=== PATIENT | male | born 1955 | race Caucasian/White ===

== ENCOUNTER 2023-09-08 13:41 | Emergency (ER) | payer MEDICARE, SELFPAY ==
[2023-09-08] VITALS (122 sets, daily range): BP systolic 73–182; BP diastolic 47–108; PULSE 90–119; RESP 12–56; TEMP 28–38.4; O2SAT 78–98; BMI 39.4
--- NOTE | 2023-09-08 13:42 | DI.RAD.S_ITS ---
PROCEDURE: XR CHEST 1V INDICATIONS: short of breath TECHNIQUE: One view of the chest was acquired. COMPARISON: None. FINDINGS: Surgical changes and devices: Catheter projects over the right chest. Lungs and pleura: Moderate diffuse reticulonodular pulmonary opacity. Small right pleural effusion. Mediastinum: Mediastinal contours appear normal. Heart size is normal. Bones and chest wall: No suspicious bony lesions. Overlying soft tissues appear unremarkable. IMPRESSION: 1. Bilateral edema versus pneumonia. 2. Right pleural effusion. Dictated by: Swati Huffman M.D. on 09/08/2023 at 14:09 Approved by: Swati Huffman M.D. on 09/08/2023 at 14:09
--- NOTE | 2023-09-08 13:52 | ED_ITS ---
HPI - SOB/Dyspnea General Chief Complaint: Shortness of Breath/Dyspnea Stated Complaint: Fever/SOB Time Seen by Provider: 09/08/23 13:42 Source: patient, family and EMS Mode of arrival: EMS History of Present Illness HPI Narrative: Patient 67 year old male with known smoking history presenting with a couple days of increasing shortness of breath. EMS found him with O2 in the 69% range he was immediately placed on CPAP. He is cool and clammy to the touch able to answer some questions. Denies any chest pain. He reports that he did not call 911 that in fact his sons in because he was concerned. He is requiring BiPAP is obvious having some respiratory distress. Family at bedside minimal history is known he does not typically go to doctors. Has had a cough ongoing for number of months if not years. Does not seem to be in his normal mental state per family at bedside Related Data Home Medications Medication Instructions Recorded Confirmed No Known Home Medications 09/08/23 09/08/23 Allergies Allergy/AdvReac Type Severity Reaction Status Date / Time No Known Drug Allergies Allergy Unverified 09/08/23 16:46 Patient History Smoking Status: Current every day smoker tobacco type: cigarettes Exam Initial Vital Signs Initial Vital Signs: Vital Signs Temperature 97.4 F L 09/08/23 13:42 Pulse Rate 104 H 09/08/23 13:42 Respiratory Rate 32 H 09/08/23 13:42 Blood Pressure 141/93 H 09/08/23 13:42 Pulse Oximetry 94 09/08/23 13:42 Oxygen Delivery Method BiPAP 09/08/23 13:42 GENERAL: 67 year old male moderate respiratory distress HEENT: Head atraumatic,EOMI, pupils reactive, face symmetric, [moist] mucous membranes CARDIOVASCULAR: Tachycardic regular RESPIRATORY: Obvious tachypnea on CPAP decreased breath sounds bilaterally no wheezing ABDOMEN: Soft, nontender. Normoactive bowel sounds all 4 quadrants. No guarding or rebound. EXTREMITIES: Normal range of motion, no clubbing or edema. Neurovascularly intact NEUROLOGICAL: Alert and oriented x4.Normal gait and speech. SKIN: Cool extremities decreased peripheral pulses Procedures Intubation sedative: Ketamine Mg Given: 230 paralytic: Rocuronium Mg Given: 79 Assist Device Used: other ([place] scope) ET Tube Size: 8 ET Tube Uncuffed: No Tube Secured Depth (cm): 24 Tube Secured Location: teeth Tube Placement Confirmation: Visualized tube passing through cords, Equal breath sounds bilaterally, No breath sounds over epigastrium, Confirmation by capnometry and Chest Xray Patient Tolerated Procedure: Well Course Orders Ordered: ED Orders 09/08/23 13:42 XR chest 1V Stat EKG-12 Lead Stat 09/08/23 13:45 BiPAP Ventilatory Support RT PROTOCOL 09/08/23 13:50 Pathologist Review (for CBC) Routine 09/08/23 13:58 Complete Blood Count AUTO DIFF Stat Comprehensive Metabolic Panel Stat LDH [Lactate Dehydrogenase] Stat Lactate (Lactic Acid) Stat NT-proBNP (BNP-Adult 18+) Stat PTT Partial Thromboplastin Ronal Stat Procalcitonin Stat Prothrombin Time INR Stat Troponin & CK Cardiac Panel Stat Uric Acid Stat 09/08/23 14:00 Respiratory Panel (Film Array) Stat 09/08/23 14:12 Arterial Blood Gas Stat 09/08/23 14:20 Blood Culture Stat 09/08/23 16:00 High flow/High humidity nasal NOW 09/08/23 16:26 XR chest for PICC 1V Stat 09/08/23 16:40 XR chest 1V Stat Ventilator Order 09/08/23 16:41 Basic Metabolic Panel Stat Trop I [Troponin I] Stat 09/08/23 17:32 Arterial Blood Gas Stat 09/08/23 17:50 Lactate (Lactic Acid) Stat Potassium Stat Discontinued Medications Albuterol (Albuterol 2.5 Mg/3 Ml Neb (Adult)) 10 mg INH NOW ONE Stop: 09/08/23 13:53 Last Admin: 09/08/23 14:23 Dose: 10 mg Documented By: LADARIUS Albuterol/Ipratropium (Albuterol/Ipratropium 3 Ml Ampul) 3 ml INH NOW ONE Stop: 09/08/23 13:44 Last Admin: 09/08/23 13:57 Dose: 3 ml Documented By: SUSAN Chlorhexidine Gluconate (Chlorhexidine Gluconate 15 Ml Cup) 15 ml PO Q6HR JAMARI Fentanyl (Fentanyl 100 Mcg/2 Ml Inj) 50 mcg IV Q1HR PRN PRN Reason: Pain, Severe (7-10) Furosemide (Furosemide 40 Mg/4 Ml Vial) 40 mg IV NOW ONE Stop: 09/08/23 14:32 Last Admin: 09/08/23 14:42 Dose: 40 mg Documented By: SUSAN Dextrose (D10w) 100 mls @ 1,200 mls/hr IV PRN PRN PRN Reason: Hypoglycemia Last Infusion: 09/08/23 15:08 Dose: Infused Documented By: Admin: 09/08/23 14:42 Dose: 1,200 mls/hr Documented By: SUSAN Piperacillin Sod/Tazobactam (Sod 4.5 gm/ Sodium Chloride) 100 mls @ 200 mls/hr IV NOW ONE Stop: 09/08/23 14:35 Last Infusion: 09/08/23 15:35 Dose: Infused Documented By: Admin: 09/08/23 15:06 Dose: 200 mls/hr Documented By: SUSAN Calcium Gluconate 4.65 meq/ (Sodium Chloride) 60 mls @ 720 mls/hr IV NOW ONE Stop: 09/08/23 14:49 Last Infusion: 09/08/23 15:08 Dose: Infused Documented By: Admin: 09/08/23 14:54 Dose: 720 mls/hr Documented By: SUSAN Propofol (Propofol) 1,000 mg in 100 mls @ 11.855 mls/hr IV TITRATE JAMARI; Protocol Last Titration: 09/08/23 17:58 Dose: 50 mcg/kg/min, 39.517 mls/hr Documented By: Titration: 09/08/23 17:39 Dose: 20 mcg/kg/min, 15.807 mls/hr Documented By: Admin: 09/08/23 17:01 Dose: 15 mcg/kg/min, 11.855 mls/hr Documented By: SUSAN Fentanyl 1,000 mcg/ Dextrose 250 mls @ 23.052 mls/hr IV TITRATE JAMARI; Protocol Fentanyl 1,000 mcg/ Sodium (Chloride) 250 mls @ 23.052 mls/hr IV TITRATE JAMARI; Protocol Last Titration: 09/08/23 18:07 Dose: 1 mcg/kg/hr, 32.931 mls/hr Documented By: Titration: 09/08/23 17:40 Dose: 0.9 mcg/kg/hr, 29.638 mls/hr Documented By: Admin: 09/08/23 16:58 Dose: 0.7 mcg/kg/hr, 23.052 mls/hr Documented By: SUSAN Sodium Chloride (Normal Saline 0.9%) 500 mls @ 21 mls/hr IV CONT JAMARI Last Admin: 09/08/23 17:18 Dose: 50 mls/hr Documented By: SUSAN NOREPINEPHRINE BITARTRATE/D5W (Levophed) 4 mg in 250 mls @ 49.396 mls/hr IV TITRATE JAMARI; Protocol Last Titration: 09/08/23 18:13 Dose: 0.15 mcg/kg/min, 74.094 mls/hr Documented By: Titration: 09/08/23 18:10 Dose: 0.1 mcg/kg/min, 49.396 mls/hr Documented By: Titration: 09/08/23 18:07 Dose: 0.05 mcg/kg/min, 24.698 mls/hr Documented By: Titration: 09/08/23 18:06 Dose: 0 mcg/kg/min, 0 mls/hr Documented By: Titration: 09/08/23 17:22 Dose: 0.1 mcg/kg/min, 49.396 mls/hr Documented By: Titration: 09/08/23 17:16 Dose: 0 mcg/kg/min, 0 mls/hr Documented By: Admin: 09/08/23 17:14 Dose: 0.1 mcg/kg/min, 49.396 mls/hr Documented By: SUSAN Furosemide 60 mg/ Sodium (Chloride) 56 mls @ 112 mls/hr IV NOW ONE Stop: 09/08/23 17:16 Last Infusion: 09/08/23 18:08 Dose: Infused Documented By: Admin: 09/08/23 17:59 Dose: 112 mls/hr Documented By: SUSAN Vancomycin HCl/Dextrose (Vancomycin) 2,000 mg in 400 mls @ 200 mls/hr IV NOW ONE Stop: 09/08/23 19:22 Last Admin: 09/08/23 18:05 Dose: 200 mls/hr Documented By: SUSAN Insulin Human Regular (Insulin Regular 100 Unit/Ml 3 Ml Vial) 5 unit IV NOW ONE Stop: 09/08/23 14:33 Last Admin: 09/08/23 14:45 Dose: 5 unit Documented By: SUSAN Co-signed By: TRICE Insulin Human Regular (Insulin Regular 100 Unit/Ml 3 Ml Vial) 10 unit IV NOW ONE Stop: 09/08/23 17:16 Last Admin: 09/08/23 17:49 Dose: 10 unit Documented By: SUSAN Co-signed By: FRANKLIN Ketamine HCl (Ketamine 500 Mg/5 Ml Inj) 260 mg IV NOW ONE Stop: 09/08/23 16:46 Last Admin: 09/08/23 16:51 Dose: 260 mg Documented By: SUSAN Lorazepam (Lorazepam 2 Mg/Ml Inj) 0.5 mg IV NOW ONE Stop: 09/08/23 15:00 Last Admin: 09/08/23 15:04 Dose: 0.5 mg Documented By: SUSAN Methylprednisolone (Methylprednisolone 125 Mg/2 Ml Vial) 125 mg IV NOW ONE Stop: 09/08/23 13:44 Last Admin: 09/08/23 13:57 Dose: 125 mg Documented By: SUSAN Rocuronium [place] (Rocuronium 50 Mg/5 Ml Inj) 79 mg 0.6 mg/kg (79 mg) IV NOW ONE Stop: 09/08/23 16:37 Last Admin: 09/08/23 16:52 Dose: 79 mg Documented By: SUSAN Vital Signs Vital signs: Vital Signs - 8 hr 09/08/23 13:42 09/08/23 13:47 09/08/23 13:50 Temperature 97.4 F L Pulse Rate 104 H 103 H 105 H Respiratory Rate 32 H 41 H 38 H Blood Pressure 141/93 H Pulse Oximetry 94 96 96 Oxygen Delivery Method BiPAP Oxygen Flow Rate Fraction of Inspired Oxygen 09/08/23 13:50 09/08/23 13:52 09/08/23 13:52 Temperature Pulse Rate 101 H Respiratory Rate 28 H Blood Pressure 136/95 H Pulse Oximetry 95 Oxygen Delivery Method Oxygen Flow Rate Fraction of Inspired Oxygen 80 09/08/23 13:55 09/08/23 13:58 09/08/23 13:58 Temperature Pulse Rate 103 H 105 H Respiratory Rate 30 H 32 H Blood Pressure 111/92 H Pulse Oximetry 95 97 Oxygen Delivery Method Oxygen Flow Rate Fraction of Inspired Oxygen 09/08/23 14:00 09/08/23 14:01 09/08/23 14:01 Temperature Pulse Rate 104 H 103 H Respiratory Rate 35 H 41 H Blood Pressure 115/97 H Pulse Oximetry 95 96 Oxygen Delivery Method Oxygen Flow Rate Fraction of Inspired Oxygen 09/08/23 14:05 09/08/23 14:10 09/08/23 14:15 Temperature Pulse Rate 103 H 104 H 103 H Respiratory Rate 35 H 19 35 H Blood Pressure Pulse Oximetry 97 97 95 Oxygen Delivery Method Oxygen Flow Rate Fraction of Inspired Oxygen 09/08/23 14:18 09/08/23 14:18 09/08/23 14:20 Temperature Pulse Rate 104 H 102 H Respiratory Rate 40 H 29 H Blood Pressure 114/81 Pulse Oximetry 93 90 L Oxygen Delivery Method Oxygen Flow Rate Fraction of Inspired Oxygen 09/08/23 14:20 09/08/23 14:25 09/08/23 14:30 Temperature 97.2 F L Pulse Rate 102 H 109 H Respiratory Rate 43 H 46 H Blood Pressure 112/77 Pulse Oximetry 92 96 Oxygen Delivery Method BiPAP Oxygen Flow Rate Fraction of Inspired Oxygen 09/08/23 14:30 09/08/23 14:35 09/08/23 14:40 Temperature 97.7 F Pulse Rate 107 H Respiratory Rate 41 H Blood Pressure 129/94 H 126/84 Pulse Oximetry 96 Oxygen Delivery Method Oxygen Flow Rate Fraction of Inspired Oxygen 09/08/23 14:40 09/08/23 14:45 09/08/23 14:45 Temperature 98.2 F 98.6 F Pulse Rate 108 H 105 H Respiratory Rate 38 H 34 H Blood Pressure 125/82 Pulse Oximetry 95 94 Oxygen Delivery Method Oxygen Flow Rate Fraction of Inspired Oxygen 09/08/23 14:50 09/08/23 14:51 09/08/23 14:51 Temperature 99.0 F 99.0 F Pulse Rate 105 H 106 H Respiratory Rate 38 H 30 H Blood Pressure 137/77 Pulse Oximetry 95 95 Oxygen Delivery Method Oxygen Flow Rate Fraction of Inspired Oxygen 09/08/23 14:55 09/08/23 15:00 09/08/23 15:00 Temperature 99.1 F 99.3 F Pulse Rate 104 H 107 H Respiratory Rate 45 H 35 H Blood Pressure 119/82 Pulse Oximetry 95 93 Oxygen Delivery Method Oxygen Flow Rate Fraction of Inspired Oxygen 09/08/23 15:05 09/08/23 15:05 09/08/23 15:10 Temperature 99.3 F Pulse Rate 109 H Respiratory Rate 40 H Blood Pressure 132/83 135/67 Pulse Oximetry 96 Oxygen Delivery Method Oxygen Flow Rate Fraction of Inspired Oxygen 09/08/23 15:10 09/08/23 15:15 09/08/23 15:15 Temperature 99.5 F 99.5 F Pulse Rate 109 H 109 H Respiratory Rate 36 H 22 Blood Pressure 148/65 H Pulse Oximetry 95 95 Oxygen Delivery Method Oxygen Flow Rate Fraction of Inspired Oxygen 09/08/23 15:20 09/08/23 15:25 09/08/23 15:25 Temperature 99.7 F H 99.7 F H Pulse Rate 109 H 108 H Respiratory Rate 35 H 42 H Blood Pressure 138/79 Pulse Oximetry 95 Oxygen Delivery Method Oxygen Flow Rate Fraction of Inspired Oxygen 09/08/23 15:30 09/08/23 15:30 09/08/23 15:35 Temperature 99.9 F H 99.9 F H Pulse Rate 106 H 108 H Respiratory Rate 35 H 41 H Blood Pressure 136/77 Pulse Oximetry 94 Oxygen Delivery Method Oxygen Flow Rate Fraction of Inspired Oxygen 09/08/23 15:35 09/08/23 15:40 09/08/23 15:40 Temperature 99.9 F H Pulse Rate 108 H Respiratory Rate 41 H Blood Pressure 134/79 120/72 Pulse Oximetry 95 Oxygen Delivery Method Oxygen Flow Rate Fraction of Inspired Oxygen 09/08/23 15:45 09/08/23 15:46 09/08/23 15:46 Temperature 99.7 F H 99.9 F H Pulse Rate 105 H 105 H Respiratory Rate 48 H 47 H Blood Pressure 138/82 Pulse Oximetry 91 90 L Oxygen Delivery Method Oxygen Flow Rate Fraction of Inspired Oxygen 09/08/23 15:50 09/08/23 15:50 09/08/23 15:55 Temperature 100.0 F H 100.0 F H Pulse Rate 109 H 106 H Respiratory Rate 51 H 44 H Blood Pressure 141/78 H Pulse Oximetry 89 L 89 L Oxygen Delivery Method Oximask Oximask Oxygen Flow Rate Fraction of Inspired Oxygen 09/08/23 15:56 09/08/23 15:56 09/08/23 16:00 Temperature 99.9 F H 100.0 F H Pulse Rate 106 H 108 H Respiratory Rate 29 H 32 H Blood Pressure 111/58 L Pulse Oximetry 89 L 94 Oxygen Delivery Method Oximask High Flow Nasal Cannula Oxygen Flow Rate Fraction of Inspired Oxygen 09/08/23 16:01 09/08/23 16:01 09/08/23 16:05 Temperature 100.0 F H 100.2 F H Pulse Rate 107 H 110 H Respiratory Rate 41 H 25 H Blood Pressure 158/70 H Pulse Oximetry 95 94 Oxygen Delivery Method Oxygen Flow Rate Fraction of Inspired Oxygen 09/08/23 16:10 09/08/23 16:11 09/08/23 16:11 Temperature 100.2 F H 100.2 F H Pulse Rate 107 H 103 H Respiratory Rate 39 H 43 H Blood Pressure Pulse Oximetry 93 92 93 Oxygen Delivery Method Oximask Oxygen Flow Rate 15 Fraction of Inspired Oxygen 09/08/23 16:11 09/08/23 16:15 09/08/23 16:15 Temperature 100.0 F H Pulse Rate 105 H 102 H Respiratory Rate 25 H 32 H Blood Pressure 157/75 H 111/58 L Pulse Oximetry 92 93 Oxygen Delivery Method Oxygen Flow Rate Fraction of Inspired Oxygen 09/08/23 16:15 09/08/23 16:19 09/08/23 16:20 Temperature Pulse Rate Respiratory Rate Blood Pressure 150/71 H 161/81 H Pulse Oximetry 92 Oxygen Delivery Method Heated High Flow Oxygen Flow Rate Fraction of Inspired Oxygen 80 09/08/23 16:20 09/08/23 16:25 09/08/23 16:25 Temperature 100.0 F H 100.2 F H Pulse Rate 104 H 105 H Respiratory Rate 47 H 42 H Blood Pressure 182/108 H Pulse Oximetry 93 93 Oxygen Delivery Method Oxygen Flow Rate Fraction of Inspired Oxygen 09/08/23 16:30 09/08/23 16:31 09/08/23 16:31 Temperature 100.4 F H 100.4 F H Pulse Rate 105 H 105 H Respiratory Rate 56 H Blood Pressure 176/93 H Pulse Oximetry 92 92 Oxygen Delivery Method Oxygen Flow Rate Fraction of Inspired Oxygen 09/08/23 16:35 09/08/23 16:35 09/08/23 16:40 Temperature 100.2 F H 100.4 F H Pulse Rate 105 H 105 H Respiratory Rate Blood Pressure 125/78 Pulse Oximetry 91 Oxygen Delivery Method Oxygen Flow Rate Fraction of Inspired Oxygen 09/08/23 16:40 09/08/23 16:45 09/08/23 16:46 Temperature 100.4 F H Pulse Rate 103 H Respiratory Rate 31 H Blood Pressure 148/94 H 149/91 H Pulse Oximetry 92 Oxygen Delivery Method Oxygen Flow Rate Fraction of Inspired Oxygen 09/08/23 16:46 09/08/23 16:50 09/08/23 16:51 Temperature 100.4 F H 100.4 F H Pulse Rate 104 H 105 H Respiratory Rate 27 H 43 H Blood Pressure 129/93 H Pulse Oximetry 90 L 87 L Oxygen Delivery Method Oxygen Flow Rate Fraction of Inspired Oxygen 09/08/23 16:51 09/08/23 16:54 09/08/23 16:54 Temperature 100.6 F H 100.6 F H Pulse Rate 104 H 119 H Respiratory Rate 39 H 27 H Blood Pressure 109/63 Pulse Oximetry 88 L 78 L Oxygen Delivery Method Mechanical Ventilation Mechanical Ventilation Oxygen Flow Rate Fraction of Inspired Oxygen 09/08/23 16:55 09/08/23 16:57 09/08/23 16:57 Temperature 100.6 F H 100.6 F H Pulse Rate 117 H 104 H Respiratory Rate 24 12 Blood Pressure 98/60 Pulse Oximetry 84 L 94 Oxygen Delivery Method Mechanical Ventilation Oxygen Flow Rate Fraction of Inspired Oxygen 09/08/23 17:00 09/08/23 17:00 09/08/23 17:03 Temperature 100.6 F H 100.8 F H Pulse Rate 102 H 116 H Respiratory Rate 16 16 Blood Pressure 107/59 L Pulse Oximetry 85 L 87 L Oxygen Delivery Method Oxygen Flow Rate Fraction of Inspired Oxygen 09/08/23 17:03 09/08/23 17:04 09/08/23 17:06 Temperature 100.8 F H 100.8 F H Pulse Rate 114 H 109 H Respiratory Rate 13 15 Blood Pressure 110/64 Pulse Oximetry 88 L 93 Oxygen Delivery Method Oxygen Flow Rate Fraction of Inspired Oxygen 09/08/23 17:06 09/08/23 17:08 09/08/23 17:09 Temperature 100.8 F H 100.8 F H Pulse Rate 100 H 100 H Respiratory Rate 16 17 Blood Pressure 110/64 Pulse Oximetry 90 L 89 L Oxygen Delivery Method Oxygen Flow Rate Fraction of Inspired Oxygen 09/08/23 17:09 09/08/23 17:10 09/08/23 17:11 Temperature 100.8 F H 100.8 F H Pulse Rate 98 H 99 H Respiratory Rate 17 16 Blood Pressure 84/52 L Pulse Oximetry 88 L 87 L Oxygen Delivery Method Oxygen Flow Rate Fraction of Inspired Oxygen 09/08/23 17:11 09/08/23 17:12 09/08/23 17:13 Temperature 100.8 F H Pulse Rate 101 H Respiratory Rate 19 Blood Pressure 78/47 L 106/51 L Pulse Oximetry 87 L Oxygen Delivery Method Oxygen Flow Rate Fraction of Inspired Oxygen 09/08/23 17:13 09/08/23 17:14 09/08/23 17:15 Temperature 100.8 F H 100.8 F H 100.8 F H Pulse Rate 100 H 99 H 106 H Respiratory Rate 16 16 13 Blood Pressure Pulse Oximetry 86 L 86 L 88 L Oxygen Delivery Method Oxygen Flow Rate Fraction of Inspired Oxygen 09/08/23 17:15 09/08/23 17:16 09/08/23 17:18 Temperature 100.8 F H 100.8 F H Pulse Rate 106 H 102 H Respiratory Rate 19 17 Blood Pressure 94/59 L Pulse Oximetry 90 L 90 L Oxygen Delivery Method Oxygen Flow Rate Fraction of Inspired Oxygen 09/08/23 17:19 09/08/23 17:19 09/08/23 17:20 Temperature 100.9 F H 100.9 F H Pulse Rate 101 H 101 H Respiratory Rate 16 17 Blood Pressure 100/54 L Pulse Oximetry 90 L 90 L Oxygen Delivery Method Oxygen Flow Rate Fraction of Inspired Oxygen 09/08/23 17:21 09/08/23 17:21 09/08/23 17:22 Temperature 100.9 F H 100.9 F H Pulse Rate 98 H 99 H Respiratory Rate 16 19 Blood Pressure 73/51 L Pulse Oximetry 90 L 90 L Oxygen Delivery Method Oxygen Flow Rate Fraction of Inspired Oxygen 09/08/23 17:24 09/08/23 17:24 09/08/23 17:26 Temperature 100.9 F H 100.9 F H Pulse Rate 97 H 96 H Respiratory Rate 14 24 Blood Pressure 102/67 Pulse Oximetry 91 93 Oxygen Delivery Method Oxygen Flow Rate Fraction of Inspired Oxygen 09/08/23 17:27 09/08/23 17:27 09/08/23 17:28 Temperature 100.9 F H 100.9 F H Pulse Rate 96 H 98 H Respiratory Rate 14 20 Blood Pressure 113/71 Pulse Oximetry 93 93 Oxygen Delivery Method Oxygen Flow Rate Fraction of Inspired Oxygen 09/08/23 17:30 09/08/23 17:32 09/08/23 17:33 Temperature 100.9 F H 100.9 F H Pulse Rate 97 H 97 H Respiratory Rate 16 23 Blood Pressure 141/82 H Pulse Oximetry 93 93 Oxygen Delivery Method Oxygen Flow Rate Fraction of Inspired Oxygen 09/08/23 17:33 09/08/23 17:34 09/08/23 17:36 Temperature 100.9 F H 100.9 F H Pulse Rate 97 H 96 H Respiratory Rate 21 36 H Blood Pressure 133/75 Pulse Oximetry 93 93 Oxygen Delivery Method Oxygen Flow Rate Fraction of Inspired Oxygen 09/08/23 17:36 09/08/23 17:38 09/08/23 17:39 Temperature 100.9 F H 100.9 F H 100.9 F H Pulse Rate 96 H 96 H 94 H Respiratory Rate 25 H 24 28 H Blood Pressure Pulse Oximetry 93 93 93 Oxygen Delivery Method Oxygen Flow Rate Fraction of Inspired Oxygen 09/08/23 17:39 09/08/23 17:40 09/08/23 17:42 Temperature 100.9 F H 100.9 F H Pulse Rate 95 H 100 H Respiratory Rate 31 H 24 Blood Pressure 130/73 Pulse Oximetry 93 92 Oxygen Delivery Method Oxygen Flow Rate Fraction of Inspired Oxygen 09/08/23 17:42 09/08/23 17:44 09/08/23 17:46 Temperature 100.9 F H 100.9 F H Pulse Rate 96 H 97 H Respiratory Rate 25 H 24 Blood Pressure 125/69 Pulse Oximetry 93 93 Oxygen Delivery Method Oxygen Flow Rate Fraction of Inspired Oxygen 09/08/23 17:48 09/08/23 17:50 09/08/23 17:52 Temperature 100.9 F H 100.9 F H 100.9 F H Pulse Rate 93 H 91 H 93 H Respiratory Rate 24 26 H 19 Blood Pressure Pulse Oximetry 93 94 92 Oxygen Delivery Method Oxygen Flow Rate Fraction of Inspired Oxygen 09/08/23 17:53 09/08/23 17:53 09/08/23 17:54 Temperature 100.9 F H Pulse Rate 92 H Respiratory Rate 26 H Blood Pressure 104/71 123/67 Pulse Oximetry 93 Oxygen Delivery Method Mechanical Ventilation Oxygen Flow Rate Fraction of Inspired Oxygen 09/08/23 17:54 09/08/23 17:56 09/08/23 17:57 Temperature 100.9 F H 100.9 F H 100.9 F H Pulse Rate 93 H 90 90 Respiratory Rate 24 24 18 Blood Pressure Pulse Oximetry 91 92 92 Oxygen Delivery Method Oxygen Flow Rate Fraction of Inspired Oxygen 09/08/23 17:57 09/08/23 17:58 09/08/23 18:00 Temperature 100.9 F H 100.9 F H Pulse Rate 90 92 H Respiratory Rate 34 H 39 H Blood Pressure 115/59 L Pulse Oximetry 93 95 Oxygen Delivery Method Oxygen Flow Rate Fraction of Inspired Oxygen 09/08/23 18:00 09/08/23 18:02 09/08/23 18:03 Temperature 100.9 F H Pulse Rate 92 H Respiratory Rate 32 H Blood Pressure 152/81 H 144/69 H Pulse Oximetry 95 Oxygen Delivery Method Oxygen Flow Rate Fraction of Inspired Oxygen 09/08/23 18:03 09/08/23 18:04 09/08/23 18:06 Temperature 100.9 F H 100.9 F H 100.9 F H Pulse Rate 91 H 90 91 H Respiratory Rate 22 22 22 Blood Pressure Pulse Oximetry 95 95 95 Oxygen Delivery Method Oxygen Flow Rate Fraction of Inspired Oxygen 09/08/23 18:06 09/08/23 18:08 09/08/23 18:10 Temperature 100.9 F H 100.9 F H Pulse Rate 90 90 Respiratory Rate 20 20 Blood Pressure 103/73 Pulse Oximetry 95 94 Oxygen Delivery Method Oxygen Flow Rate Fraction of Inspired Oxygen 09/08/23 18:10 09/08/23 18:12 09/08/23 18:12 Temperature 100.9 F H Pulse Rate 90 Respiratory Rate 33 H Blood Pressure 76/50 L 77/48 L Pulse Oximetry 93 Oxygen Delivery Method Oxygen Flow Rate Fraction of Inspired Oxygen 09/08/23 18:14 09/08/23 18:15 09/08/23 18:15 Temperature 100.9 F H 100.9 F H Pulse Rate 91 H 91 H Respiratory Rate 13 20 Blood Pressure 123/64 Pulse Oximetry 94 94 Oxygen Delivery Method Oxygen Flow Rate Fraction of Inspired Oxygen 09/08/23 18:16 09/08/23 18:18 09/08/23 18:18 Temperature 101.1 F H 101.1 F H Pulse Rate 92 H 92 H Respiratory Rate 20 19 Blood Pressure 133/64 Pulse Oximetry 96 95 Oxygen Delivery Method Oxygen Flow Rate Fraction of Inspired Oxygen 09/08/23 18:20 09/08/23 18:21 09/08/23 18:21 Temperature 101.1 F H 101.1 F H Pulse Rate 92 H 92 H Respiratory Rate 21 22 Blood Pressure 133/62 Pulse Oximetry 95 95 Oxygen Delivery Method Oxygen Flow Rate Fraction of Inspired Oxygen 09/08/23 18:22 09/08/23 18:24 09/08/23 18:24 Temperature 101.1 F H 100.9 F H Pulse Rate 93 H 92 H Respiratory Rate 20 20 Blood Pressure 132/63 Pulse Oximetry 95 95 Oxygen Delivery Method Oxygen Flow Rate Fraction of Inspired Oxygen 09/08/23 18:26 09/08/23 18:27 09/08/23 18:27 Temperature 100.9 F H 100.9 F H Pulse Rate 106 H 107 H Respiratory Rate 20 20 Blood Pressure 127/63 Pulse Oximetry 95 95 Oxygen Delivery Method Oxygen Flow Rate Fraction of Inspired Oxygen 09/08/23 18:28 09/08/23 18:30 09/08/23 18:32 Temperature 100.9 F H 100.9 F H 100.8 F H Pulse Rate 105 H 98 H 97 H Respiratory Rate 24 20 20 Blood Pressure Pulse Oximetry 95 95 96 Oxygen Delivery Method Mechanical Ventilation Oxygen Flow Rate Fraction of Inspired Oxygen 09/08/23 18:34 09/08/23 18:36 09/08/23 18:38 Temperature 100.8 F H 100.8 F H 100.8 F H Pulse Rate 97 H 98 H 98 H Respiratory Rate 20 20 32 H Blood Pressure Pulse Oximetry 97 97 98 Oxygen Delivery Method Oxygen Flow Rate Fraction of Inspired Oxygen 09/08/23 18:40 09/08/23 18:42 Temperature 100.8 F H Pulse Rate 97 H 94 H Respiratory Rate 20 20 Blood Pressure Pulse Oximetry 97 Oxygen Delivery Method Oxygen Flow Rate Fraction of Inspired Oxygen MDM - SOB/Dyspnea Lab Data 09/08/23 13:58 09/08/23 17:50 Labs: Lab Results 09/08/23 09/08/23 09/08/23 Range/Units 13:58 14:00 14:12 WBC 802.5 H* (4.5-11.0) X10^3/uL RBC 4.51 (4.5-5.9) X10^6/uL Hgb 11.3 L (13.5-17.5) g/dL Hct 34.9 L (41-53) % MCV 77.3 L (80-100) fL MCH 25.1 L (26-34) PG MCHC 32.4 (30-36) % RDW 16.9 H (11.6-14.8) % Plt Count 237 (150-400) X10^3/uL Neut % (Auto) Not Reportable Lymph % (Auto) Not Reportable [place] % (Auto) Not Reportable Eos % (Auto) Not Reportable Baso % (Auto) Not Reportable Lymph # (Auto) Not Reportable [place] # (Auto) Not Reportable Baso # (Auto) Not Reportable Total Counted 200 Seg Neutrophils % 6.0 L (38-70) % Lymphocytes % (Manual) 93.5 H (25-45) % Monocytes % (Manual) 0.5 L (2-11) % Neutrophils # (Manual) 06029 H (5648-6891) /uL RBC Morphology Normal morphology PT 20.4 H (9.4-12.5) SECONDS INR 1.8 H (0.9-1.3) APTT 24 L (25.1-36.5) SECONDS ABG Sample Site Left radial ABG pH 7.26 L* (7.35-7.45) ABG pCO2 76.0 H* (35-45) mmHg ABG pO2 80 (80-100) mmHg ABG HCO3 35 H (23-27) mmol/L ABG Total CO2 37 H (23-27) mmol/L ABG O2 Saturation 93 L (95-100) % ABG Base Excess 8.0 H (-2-3) mmol/L FiO2 80 Sodium 134 L (137-145) mmol/L Potassium 7.9 H* (3.4-5.1) mmol/L Chloride 95 L (98-107) mmol/L Carbon Dioxide 32 (22-32) mmol/L BUN 29 H (9-20) mg/dL Creatinine 1.09 (0.66-1.25) mg/dL Estimated GFR > 60 (>60) mL/min BUN/Creatinine Ratio 26.6 H (6-22) Glucose 136 H (80-110) mg/dL Lactate 1.1 (0.7-2.1) mmol/L Uric Acid 11.4 H (3.5-8.5) mg/dL Calcium 9.0 (8.4-10.2) mg/dL Total Bilirubin 0.9 (0.2-1.3) mg/dL AST 110 H (17-59) IU/L ALT 15 (<50) IU/L Alkaline Phosphatase 265 H (38-126) U/L Lactate Dehydrogenase 864 H (120-246) U/L Total Creatine Kinase 35 L (55-170) U/L Troponin I 0.071 H (0.01-0.034) ng/mL NT-Pro-B Natriuret Pep 86232 H (<125) pg/mL Total Protein 7.6 (6.3-8.2) g/dL Albumin 4.1 (3.5-5.0) g/dL Globulin 3.5 (1.7-4.1) g/dL Albumin/Globulin Ratio 1.2 (1.0-2.8) Procalcitonin 0.19 (<0.5) ng/mL Chlamy pneumoniae PCR Not detected (Not Detect) Adenovirus (PCR) Not detected (Not Detect) B.parapertussis DNA PCR Not detected (Not Detecte) Coronavirus OC43 (PCR) Not detected (Not Detect) Coronavirus HKU1 (PCR) Not detected (Not Detect) Coronavirus 229E (PCR) Not detected (Not Detect) SARS-CoV-2 (PCR) Not detected (Not Detecte) Coronavirus NL63 (PCR) Not detected (Not Detect) Human Metapneumovir PCR Not detected (Not Detect) Influenza Type A (PCR) Not detected (Not Detect) Influenza Type B (PCR) Not detected (Not Detect) M. pneumoniae (PCR) Not detected (Not Detect) Parainfluenza 1 (PCR) Not detected (Not Detect) Parainfluenza 2 (PCR) Not detected (Not Detect) Parainfluenza 3 (PCR) Not detected (Not Detect) Parainfluenza 4 (PCR) Not detected (Not Detect) RSV (PCR) Not detected (Not Detect) Entero/Rhino (PCR) Not detected (Not Detect) 09/08/23 09/08/23 09/08/23 Range/Units 16:41 17:32 17:50 WBC (4.5-11.0) X10^3/uL RBC (4.5-5.9) X10^6/uL Hgb (13.5-17.5) g/dL Hct (41-53) % MCV (80-100) fL MCH (26-34) PG MCHC (30-36) % RDW (11.6-14.8) % Plt Count (150-400) X10^3/uL Neut % (Auto) Lymph % (Auto) Ballard % (Auto) Eos % (Auto) Baso % (Auto) Lymph # (Auto) Ballard # (Auto) Baso # (Auto) Total Counted Seg Neutrophils % (38-70) % Lymphocytes % (Manual) (25-45) % Monocytes % (Manual) (2-11) % Neutrophils # (Manual) (4121-4167) /uL RBC Morphology PT (9.4-12.5) SECONDS INR (0.9-1.3) APTT (25.1-36.5) SECONDS ABG Sample Site Right radial ABG pH 7.33 L (7.35-7.45) ABG pCO2 66.4 H* (35-45) mmHg ABG pO2 65 L (80-100) mmHg ABG HCO3 35 H (23-27) mmol/L ABG Total CO2 37 H (23-27) mmol/L ABG O2 Saturation 90 L (95-100) % ABG Base Excess 9.0 H (-2-3) mmol/L FiO2 100 Sodium 134 L (137-145) mmol/L Potassium 8.9 H* 10.3 H* D (3.4-5.1) mmol/L Chloride 94 L (98-107) mmol/L Carbon Dioxide 33 H (22-32) mmol/L BUN 31 H (9-20) mg/dL Creatinine 1.15 (0.66-1.25) mg/dL Estimated GFR > 60 (>60) mL/min BUN/Creatinine Ratio 27.0 H (6-22) Glucose 141 H (80-110) mg/dL Lactate 1.0 (0.7-2.1) mmol/L Uric Acid (3.5-8.5) mg/dL Calcium 9.3 (8.4-10.2) mg/dL Total Bilirubin (0.2-1.3) mg/dL AST (17-59) IU/L ALT (<50) IU/L Alkaline Phosphatase (38-126) U/L Lactate Dehydrogenase (120-246) U/L Total Creatine Kinase (55-170) U/L Troponin I 0.114 H (0.01-0.034) ng/mL NT-Pro-B Natriuret Pep (<125) pg/mL Total Protein (6.3-8.2) g/dL Albumin (3.5-5.0) g/dL Globulin (1.7-4.1) g/dL Albumin/Globulin Ratio (1.0-2.8) Procalcitonin (<0.5) ng/mL Chlamy pneumoniae PCR (Not Detect) Adenovirus (PCR) (Not Detect) B.parapertussis DNA PCR (Not Detecte) Coronavirus OC43 (PCR) (Not Detect) Coronavirus HKU1 (PCR) (Not Detect) Coronavirus 229E (PCR) (Not Detect) SARS-CoV-2 (PCR) (Not Detecte) Coronavirus NL63 (PCR) (Not Detect) Human Metapneumovir PCR (Not Detect) Influenza Type A (PCR) (Not Detect) Influenza Type B (PCR) (Not Detect) M. pneumoniae (PCR) (Not Detect) Parainfluenza 1 (PCR) (Not Detect) Parainfluenza 2 (PCR) (Not Detect) Parainfluenza 3 (PCR) (Not Detect) Parainfluenza 4 (PCR) (Not Detect) RSV (PCR) (Not Detect) Entero/Rhino (PCR) (Not Detect) Point of Care Testing Glucose POC 136 Imaging Data Chest x-ray: Radiologist's Impression: PROCEDURE: XR CHEST 1V INDICATIONS: short of breath TECHNIQUE: One view of the chest was acquired. COMPARISON: None. FINDINGS: Surgical changes and devices: Catheter projects over the right chest. Lungs and pleura: Moderate diffuse reticulonodular pulmonary opacity. Small right pleural effusion. Mediastinum: Mediastinal contours appear normal. Heart size is normal. Bones and chest wall: No suspicious bony lesions. Overlying soft tissues appear unremarkable. IMPRESSION: 1. Bilateral edema versus pneumonia. 2. Right pleural effusion. Dictated by: Swati Huffman M.D. on 09/08/2023 at 14:09 CX 2: Radiologist's Impression: PROCEDURE: XR CHEST FOR PICC 1V INDICATIONS: line placement TECHNIQUE: One view of the chest was acquired. COMPARISON: [facility], XR CHEST 1V, 09/08/2023, 13:55. FINDINGS: Surgical changes and devices: Left arm PICC is present, tip of which is not well seen, but appears to be in the mid SVC. Lungs and pleura: Moderate right and mild left bibasilar airspace opacity. No pneumothorax. Small right pleural effusion. Mediastinum: Mediastinal contours appear normal. Heart size is normal. Bones and chest wall: No suspicious bony lesions. Overlying soft tissues appear unremarkable. IMPRESSION: Bibasilar pneumonia. Right pleural effusion. Continued plain film surveillance is recommended to ensure resolution, and to exclude underlying or central malignancy. Dictated by: Swati Huffman M.D. on 09/08/2023 at 16:40 CX 3: Radiologist's Impression: PROCEDURE: XR CHEST 1V INDICATIONS: POST intubation, TECHNIQUE: One view of the chest was acquired. COMPARISON: None. FINDINGS: Surgical changes and devices: ETT tip is approximately 4.1 cm above the grace. NG tube tip is below the left hemidiaphragm. Lungs and pleura: There is small to moderate right pleural effusion and extensive airspace opacities throughout bilateral lung junior. No pneumothorax. Mediastinum: Mediastinal contours appear normal. Heart size is enlarged. Bones and chest wall: No suspicious bony lesions. Overlying soft tissues appear unremarkable. IMPRESSION: ETT and NG tube are in satisfactory position. Small to moderate right pleural effusion and extensive pulmonary edema with suggestion of superimposed extensive bilateral pulmonary infiltrates. No pneumothorax. Dictated by: Mitch Mejia M.D. on 09/08/2023 at 17:26 Approved by: Mitch Mejia M.D. on 09/08/2023 at 17:2 ECG Data Interpretation: Sinus tachycardia rate 104 SD interval 156 QRS 94 QTC 468 artifact noted wandering baseline MDM Narrative Medical decision making narrative: Patient 67-year-old male presents with acute respiratory distress placed immediately on BiPAP. He is given nebulizer treatments initially which do help some. But continues to require BiPAP. Blood work reviewed: WBC 802.5, hemoglobin 11.3, hematocrit 34.9, platelets 237, PT 20.4, INR 1.8, sodium 134, potassium 7.9-->8.9, chloride 95, carbon dioxide 32, BUN 29, creatinine 1.0, glucose 136, uric acid 11.4, lactate 1.1, calcium 9.0, bilirubin 0.9, AST 110, ALT 15, alk-phos 265, LDH 864, CK 35, troponin 0.071, BNP 03773 ABG pH 7.26, pCO2 76, PO2 80 Chest x-ray: Bilateral edema versus pneumonia, right pleural effusion EKG tachycardic Patient is found to be in acute respiratory distress with pleural effusion, along with significantly elevated WBC of 802 an elevated potassium of 7.9 Patient's hyperkalemia was treated with albuterol Lasix and insulin he was also given calcium gluconate Concern for an acute leukemia significantly elevated white count with elevated uric acid and LDH. No known prior history. Patient is quite agitated was not really tolerating BiPAP but started to look a little bit more comfortable. He was switched over to high-flow seems a bit better. But still extremely agitated pulling things off not redirectable. Discussion with family at bedside patient was intubated due to ongoing hypoxia and confusion. Patient was also treated for pneumonia with antibiotics Zosyn and vancomycin Dr. Taveras english division chair at [facility] updated on patient's symptoms and test results. Ongoing elevation of potassium despite treatment. Possibly due to hemolytic problem. Patient was again given insulin and Lasix. Recommended tidal volume at 620. She is happy to accept patient request CT chest abdomen pelvis, unfortunately not able to get done prior to patient being transferred Critical Care Time Critical Care Time Critical Care Time: Yes Total Critical Care Time: 75 Attestation: The high probability of a clinically significant, sudden or life threatening deterioration of the [cardiovascular] system(s) required my full and direct attention, intervention and personal management. The aggregate critical care time was 75 minutes. This time is in addition to time spent performing reported procedures but includes the following: [x] Data Review and interpretation [x] Patient assessment and monitoring of vital signs [x] Documentation [x] Medication orders and management Discharge Plan Departure Patient Disposition: [facility] Clinical Impression: Acute hypoxic respiratory failure, Acute hyperkalemia, Acute leukemia, Pleural effusion, Pneumonia Prescriptions: No Action No Known Home Medications
[2023-09-08] MEDS: ALBUTEROL/IPRATROPIUM 3 ML AMPUL INH (13:57)
[2023-09-08] MEDS: methylPREDNISolone 125 MG/2 ML VIAL IV (13:57)
[2023-09-08 14:22] LABS: Lactate (Lactic Acid) 1.1 mmol/L (0.7-2.1)
[2023-09-08] MEDS: ALBUTEROL 2.5 MG/3 ML NEB (ADULT) 10 MG INH (14:23)
[2023-09-08 14:24] LABS: Alanine Aminotransferase 15 IU/L (<50); Albumin 4.1 g/dL (3.5-5.0); Albumin Globulin Ratio 1.2 (1.0-2.8); Alkaline Phosphatase 265 U/L (38-126); Aspartate Aminotransferase 110 IU/L (17-59); BUN Creatinine Ratio 26.6 (6-22); Bilirubin Total 0.9 mg/dL (0.2-1.3); Blood Urea Nitrogen 29 mg/dL (9-20); Carbon Dioxide 32 mmol/L (22-32); Chloride 95 mmol/L (98-107); Creatine Kinase 35 U/L (55-170); Estimated Glomerular Filt Rate > 60 mL/min (>60); Globulin 3.5 g/dL (1.7-4.1); Glucose 136 mg/dL (80-110); Sodium 134 mmol/L (137-145); Total Protein 7.6 g/dL (6.3-8.2)
[2023-09-08 14:28] LABS: HEMOLYSIS 89 (0-50)
[2023-09-08 14:31] LABS: Potassium 7.9 mmol/L (3.4-5.1)
[2023-09-08 14:32] LABS: INR 1.8 (0.9-1.3); Prothrombin Time 20.4 SECONDS (9.4-12.5)
[2023-09-08 14:36] LABS: NT-proBNP (BNP-Adult 18+) 11700 pg/mL (<125); Troponin I 0.071 ng/mL (0.01-0.034)
[2023-09-08 14:36] LABS: PO2 ABG 80 mmHg (80-100)
[2023-09-08 14:37] LABS: Allen Test for ABG Passed? Yes, Passed; Blood Gas Collection Site Left Radial; Fractionated Inspired Oxygen 80; HCO3 ABG 35 mmol/L (23-27); Oxygen Saturation ABG 93 % (95-100); TCO2 ABG 37 mmol/L (23-27)
[2023-09-08 14:38] LABS: pH ABG 7.26 (7.35-7.45)
[2023-09-08 14:40] LABS: Hematocrit 34.9 % (41-53); Hemoglobin 11.3 g/dL (13.5-17.5); Mean Corpuscular HGB Conc 32.4 % (30-36); Mean Corpuscular Volume 77.3 fL (80-100); Platelet Count 237 X10^3/uL (150-400); Procalcitonin 0.19 ng/mL (<0.5); Red Blood Cell Count 4.51 X10^6/uL (4.5-5.9); Red Cell Distribution Width 16.9 % (11.6-14.8)
[2023-09-08 14:41] LABS: Add Manual Diff / Slide Review YES
[2023-09-08 14:42] LABS: Mean Corpuscular Hemoglobin 25.1 PG (26-34)
[2023-09-08] MEDS: DEXTROSE 10 % IN WATER 100 ML 1200 ML IV (14:42)
[2023-09-08] MEDS: FUROSEMIDE 40 MG/4 ML VIAL IV (14:42)
[2023-09-08 14:44] LABS: PTT Partial Thromboplastin Tim 24 SECONDS (25.1-36.5)
[2023-09-08] MEDS: INSULIN REGULAR 100 UNIT/ML 3 ML VIAL IV (14:45)
[2023-09-08 14:47] LABS: White Blood Cell Count 802.5 X10^3/uL (4.5-11.0)
[2023-09-08 14:49] LABS: Lymphocytes Percent Manual 93.5 % (25-45); Monocytes Percent Manual 0.5 % (2-11); Neutrophils Absolute Manual 48150 /uL (3000-5900); RBC Morphology Normal Morphology; Total Cells Counted 200
[2023-09-08] MEDS: CALCIUM GLUCONATE 4.65 MEQ in SODIUM CHLORIDE 0.9% 50 ML 720 MEQ IV (14:54)
[2023-09-08 15:00] LABS: Adenovirus Not Detected (Not Detect); B. parapertussis Not Detected (Not Detecte); Bordetella pertussis Not Detected (Not Detect); Chlamydophila pneumoniae Not Detected (Not Detect); Coronavirus 229E Not Detected (Not Detect); Coronavirus HKU1 Not Detected (Not Detect); Coronavirus NL 63 Not Detected (Not Detect); Coronavirus OC43 Not Detected (Not Detect); Human Metapneumovirus Not Detected (Not Detect); Human Rhinovirus/Enterovirus Not Detected (Not Detect); Influenza A Not Detected (Not Detect); Influenza B Not Detected (Not Detect); Mycoplasma pneumoniae Not Detected (Not Detect); Parainfluenza Virus 1 Not Detected (Not Detect); Parainfluenza Virus 2 Not Detected (Not Detect); Parainfluenza Virus 3 Not Detected (Not Detect); Parainfluenza Virus 4 Not Detected (Not Detect); Respiratory Syncytial Virus Not Detected (Not Detect); SARS- CoV-2 Not Detected (Not Detecte)
[2023-09-08] MEDS: LORazepam 2 MG/ML INJ 0.5 MG IV (15:04)
[2023-09-08] MEDS: PIPERACILLIN/TAZO 4.5 GM in SODIUM CHLORIDE 0.9% 100 ML IV (15:06)
[2023-09-08 15:16] LABS: Lactate Dehydrogenase 864 U/L (120-246); Uric Acid 11.4 mg/dL (3.5-8.5)
--- NOTE | 2023-09-08 15:57 | PC.NURSE ---
Pt's son states that pt does not have a PCP and does not access healthcare. He states his father has no prescriptions.
--- NOTE | 2023-09-08 16:26 | DI.RAD.S_ITS ---
PROCEDURE: XR CHEST FOR PICC 1V INDICATIONS: line placement TECHNIQUE: One view of the chest was acquired. COMPARISON: [facility], CR, XR CHEST 1V, 09/08/2023, 13:55. FINDINGS: Surgical changes and devices: Left arm PICC is present, tip of which is not well seen, but appears to be in the mid SVC. Lungs and pleura: Moderate right and mild left bibasilar airspace opacity. No pneumothorax. Small right pleural effusion. Mediastinum: Mediastinal contours appear normal. Heart size is normal. Bones and chest wall: No suspicious bony lesions. Overlying soft tissues appear unremarkable. IMPRESSION: Bibasilar pneumonia. Right pleural effusion. Continued plain film surveillance is recommended to ensure resolution, and to exclude underlying or central malignancy. Dictated by: Swati Huffman M.D. on 09/08/2023 at 16:40 Approved by: Swati Huffman M.D. on 09/08/2023 at 16:41
--- NOTE | 2023-09-08 16:40 | DI.RAD.S_ITS ---
PROCEDURE: XR CHEST 1V INDICATIONS: POST intubation, TECHNIQUE: One view of the chest was acquired. COMPARISON: None. FINDINGS: Surgical changes and devices: ETT tip is approximately 4.1 cm above the grace. NG tube tip is below the left hemidiaphragm. Lungs and pleura: There is small to moderate right pleural effusion and extensive airspace opacities throughout bilateral lung junior. No pneumothorax. Mediastinum: Mediastinal contours appear normal. Heart size is enlarged. Bones and chest wall: No suspicious bony lesions. Overlying soft tissues appear unremarkable. IMPRESSION: ETT and NG tube are in satisfactory position. Small to moderate right pleural effusion and extensive pulmonary edema with suggestion of superimposed extensive bilateral pulmonary infiltrates. No pneumothorax. Dictated by: Mitch Mejia M.D. on 09/08/2023 at 17:26 Approved by: Mitch Mejia M.D. on 09/08/2023 at 17:26
[2023-09-08] MEDS: KETAMINE 500 MG/5 ML INJ 260 MG IV (16:51)
[2023-09-08] MEDS: ROCURONIUM 50 MG/5 ML INJ 79 MG IV (16:52)
[2023-09-08] MEDS: fentaNYL 1,000 MCG in SODIUM CHLORIDE 0.9% 230 ML 23.052 MCG IV (16:58)
[2023-09-08] MEDS: propofoL 1,000 MG/100 ML VIAL 11.855 MG IV (17:01)
[2023-09-08 17:07] LABS: Blood Urea Nitrogen 31 mg/dL (9-20); Carbon Dioxide 33 mmol/L (22-32); Chloride 94 mmol/L (98-107); HEMOLYSIS 21 (0-50); Sodium 134 mmol/L (137-145)
[2023-09-08 17:08] LABS: Calcium 9.3 mg/dL (8.4-10.2); Estimated Glomerular Filt Rate > 60 mL/min (>60); Glucose 141 mg/dL (80-110)
--- NOTE | 2023-09-08 17:08 | PC.NURSE ---
intubation started at 1650, color changed + at 165, 24 at the teeth, OG placed at 170, chest x-ray taken to verify placements at 165. Meds recorded in SEP.
[2023-09-08] MEDS: NOREPINEPHRINE BITARTRATE/D5W 4 MG/250 ML PLAST..BAG 49.396 MG IV (17:14)
[2023-09-08 17:15] LABS: Potassium 8.9 mmol/L (3.4-5.1)
[2023-09-08] MEDS: SODIUM CHLORIDE 0.9% 500 ML 50 ML IV (17:18)
[2023-09-08 17:22] LABS: Troponin I 0.114 ng/mL (0.01-0.034)
--- NOTE | 2023-09-08 17:35 | PC.NURSE ---
AMY activated: will call back w/ ETA
[2023-09-08 17:43] LABS: Allen Test for ABG Passed? Yes, Passed; Blood Gas Collection Site Right Radial; Fractionated Inspired Oxygen 100; HCO3 ABG 35 mmol/L (23-27); Oxygen Saturation ABG 90 % (95-100); PO2 ABG 65 mmHg (80-100); TCO2 ABG 37 mmol/L (23-27); pH ABG 7.33 (7.35-7.45)
[2023-09-08 17:44] LABS: PCO2 ABG 66.4 mmHg (35-45)
[2023-09-08] MEDS: INSULIN REGULAR 100 UNIT/ML 3 ML VIAL 10 UNIT IV (17:49)
[2023-09-08] MEDS: FUROSEMIDE 60 MG in SODIUM CHLORIDE 0.9% 50 ML 112 MG IV (17:59)
[2023-09-08 18:04] LABS: HEMOLYSIS 39 (0-50)
[2023-09-08] MEDS: VANCOMYCIN 2,000 MG/400 ML PIGGYBACK 200 MG IV (18:05)
[2023-09-08 18:09] LABS: Potassium 10.3 mmol/L (3.4-5.1)
--- NOTE | 2023-09-08 18:34 | PC.NURSE ---
OG tube pulled, not in as far as needed, flight crew requested that we remove it, they did not want to wait for another placed, ABD is soft, not distended.
== END 2023-09-08 19:01 | disposition short-term general hospital (02) ==
PROVIDERS: Emergency Provider Emergency Medicine
DX: J96.01 Acute respiratory failure with hypoxia (principal); E87.5 Hyperkalemia; J90 Pleural effusion, not elsewhere classified; J18.9 Pneumonia, unspecified organism; Z20.822 Contact with and (suspected) exposure to COVID-19
CPT/HCPCS: 31500; 36415; 36569; 36600; 71045; 80048; 80053; 82550; 82805; 82962; 83605; 83615; 83880; 84132; 84145; 84484; 84550; 85007; 85025; 85610; 85730; 87040; 87633; 93005; 93010; 94640; 94660; 96365; 96367; 96375; 96376; 99285; 99291; 99292; J0612; J1940; J2060; J2543; J2704; J2930; J3010; J7613

== ENCOUNTER → 2023-11-10 13:09 | Outpatient (CLI) | payer MEDICARE, OTHER, SELFPAY ==
[2023-09-08 17:32] VITALS: PULSE 96; RESP 24; O2SAT 93
== END ==
LOC: RESP 13:10
PROVIDERS: Family Provider Orthopaedic Surgery; PCP Family Medicine; Referring Provider Internal Medicine Critical Care Medicine; Visit Provider Internal Medicine Critical Care Medicine
DX: J44.9 Chronic obstructive pulmonary disease, unspecified (principal); F17.210 Nicotine dependence, cigarettes, uncomplicated
CPT/HCPCS: 94060; 94726; 94729

== ENCOUNTER 2024-02-18 07:30 | Outpatient (RCR) | payer MEDICARE, OTHER, SELFPAY ==
[2023-09-08 17:32] VITALS: PULSE 96; RESP 24; O2SAT 93
--- NOTE | 2024-01-04 17:41 | PT.OIE ---
Addendum entered and electronically signed by Radha Moreno, PT 01/13/24 08:21: PT direct supervision and direction to student PT Trevon Flanagan throughout session Original Note: Current Diagnoses Other malaise (01/04/24) Past Medical History (Last Updated 11/22/23 @ 14:42 by Apple Neville MD) Anemia Atrial fibrillation with rapid ventricular response CLL (chronic lymphocytic leukemia) (~2023) COPD (chronic obstructive pulmonary disease) Declining functional status DNR (do not resuscitate) Electrolyte disturbance Elevated LFTs Malignant pleural effusion Tobacco use disorder Past Surgical History (Last Reviewed 11/04/23 @ 15:09 by Rick Morrissey MD) Anesthesia History of back surgery (~1993) Visit Care Team Role Provider Type Robert Donohue MD Family Provider Physician Specialty: Orthopedics Orthopedic Surgery Address: [address] [place] [address], [id number] Fax: Email: [email or web address] Apple Neville MD Attending Provider Physician Primary Care Provider Referring Provider Specialty: Family Practice COLD STORAGE SUPERVISOR Address: [address] [place] [address], [id number] Fax: Email: [email or web address] Physical Therapy Initial Evaluation PT-OP-A Visit Information Start: 12/22/23 17:31 Freq: Status: Active Protocol: Document 01/04/24 08:17 FELECIA (Rec: 01/04/24 09:08 FELECIA [id number]) Out-Patient Physical Therapy Visit Information Visit Information Visit Type Initial Evaluation Visit Note 08/04 Visit Start Time 08:17 Visit Stop Time 09:02 Visit Number 1 Number of BRICKLAYER SUPERVISOR Visits 0 Evaluation Information Evaluation Date 01/04/24 PT-OP-B Current Condition Start: 12/22/23 17:31 Freq: Status: Active Protocol: Document 01/04/24 08:17 JAlysa (Rec: 01/04/24 09:08 FELECIA [id number]) Current Condition History of Current Condition Current Complaints Dec balance, R knee pain History of Current Condition Pt fell and came down hard on his knees back in Feburary due to a fall from loss of balance and dizziness. Reported at 63% oxygen upone hospital arrival and dizziness has been getting worse ever since his stay. Pt had a onset of cancer in [facility] during hospitalization and has been doing chemotherapy treatment since October. He takes one pill a day for the chemotherapy and started on a once a week treatment but is now only going once a month. In 1993 pt had a disectomy at L4-L5 region. Knees and joints ache and up until recently his R knee was discorlored and yellow due to his fall. Treatment Goals Patient/Caregiver Goals Working on improving balance and getting ready to fish again. 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 Baseline Function- Recreation/Hobbies Fishing Personal Factors Other Personal Factors That May Effect Chemotherapy treatment Therapy/Recovery PT-OP-C Subjective Start: 12/22/23 17:31 Freq: Status: Active Protocol: Document 01/04/24 08:17 JG (Rec: 01/04/24 11:04 FELECIA [id number]) OP-PT Subjective Patient Comments Patient Reported Progress Worse PT-OP-E Functional Tests Start: 12/22/23 17:31 Freq: Status: Active Protocol: Document 01/04/24 08:17 JG (Rec: 01/04/24 11:08 JG [id number]) Functional Tests 30 Second Sit to Stand Test Score 10 Comments Arms crossed Functional Gait Assessment Score 18 PT-OP-G Mobility & Gait Start: 12/22/23 17:31 Freq: Status: Active Protocol: Document 01/04/24 08:17 JG (Rec: 01/04/24 17:23 JG [id number]) OP Gait Assessment Gait Gait Assistance Required: Independent Distance (Feet) 200 Able to Maintain Weight Bearing Status Yes During Gait Assistive Devices Assistive Device Gait Belt Orthotic/Prosthetic Devices or Brace: No Gait Deviations General Gait Pattern Decreased Stride Length, Decreased Feet Clearance, Flexed Trunk Factors Limiting Gait Function Factors Limiting Gait Function Decreased Activity Tolerance, Decreased Strength,Limited Range of Motion,Pain,Poor Balance,Poor Safety Awareness Stair Climbing Evaluation Evaluation Level of Assist On Stairs Independent Devices Stair Climbing Assistive Devices Left Railing,Right Railing Technique/Endurance Stair Climbing Direction Ascend and Descend Stair Climbing Technique Step Over Step PT-OP-J Posture/Palpation/Skin Start: 12/22/23 17:31 Freq: Status: Active Protocol: Document 01/04/24 08:17 JG (Rec: 01/04/24 11:10 JG [id number]) Posture Evaluation Position Standing Evaluation View Anterior Head/C-Spine Posture Forward Head T-Spine Posture Rotation Left,Increased Kyphosis Shoulder Posture (L) Elevated PT-OP-M Strength Start: 12/22/23 17:31 Freq: Status: Active Protocol: Document 01/04/24 08:17 JG (Rec: 01/04/24 09:08 JG [id number]) Hip Strength Hip Manual Muscle Testing Right Flexion (L2) 4 Good Abduction 4- Good- Left Flexion (L2) 4- Good- Abduction 4+ Good+ Knee Strength Knee Manual Muscle Testing Right Flexion (S2) 4- Good- Extension (L3) 5 Normal Left Flexion (S2) 4- Good- Extension (L3) 5 Normal Ankle/Foot Strength Ankle and Foot Manual Muscle Testing Right Dorsiflexion (L4) 5 Normal Plantarflexion (S1) 5 Normal Left Dorsiflexion (L4) 5 Normal Plantarflexion (S1) 5 Normal PT-OP-T Assessment and Plan Start: 12/22/23 17:31 Freq: Status: Active Protocol: Document 01/04/24 08:02 JG (Rec: 01/04/24 09:08 JG [id number]) Physical Therapy Assessment Rehab Potential Rehabilitation Potential Good Evaluation Complexity Number of Personal Factors/Comorbidities 3 or More Number of Body Systems Impaired 4 or More Clinical Presentation at Evaluation Evolving Impairments Impairments Activity Tolerance,Balance, Coordination,Functional Activities,Functional Mobility ,Gait,Pain,Posture,Soft Tissue Mobility,Strength Other Concerns Barriers to Rehabilitation Pt is a fall risk due to unstadiness during gait. 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 Goals STS Facility Examiner Goal (LTG) Pt will be able to complete 12 STS with arms crossed in 30 sec in order to dec risk for falls based on age related norms LTG Duration 03/28/24 Balance Short Term Goal (STG) Pt will be able to balance on shuttle balance with a WBOS for 30 seconds to improve functional balance and imitate working conditions STG Duration 02/01/24 Senior Care Goal (LTG) Pt will be able to balance on shuttle balance with a staggered stance for 30 seconds with UE movements to improve functional balance and imitate working conditions LTG Duration 03/28/24 Gait Short Term Goal (STG) Pt will inc FGA score from 18/ 30 to a 24/30 in order to improve ability for functional activities and to return to work safetly Senior Care Goal (LTG) Pt will inc FGA score from 18/ 30 to a 28/30 in order to improve ability for functional activities and to return to work safetly LTG Duration 03/28/24 Assessment Summary Assessment Pt is a 68 yr/o male with a history R knee pain with recent worsining after a hard fall in [facility] and was admitted to the hospital due to SOB and new diagnosis of cancer. Since being d/c, he has reported dizziness that comes on with certain head movements and takes about 10 sec to go away. Pt may benefit from futher assessment from vestibular specialist. His pain during gait was reported at a 5 and he says that his R knee pain has only been getting worse since leaving the hospital. Pt reports loss of balance frequently and that his son has been noticing balance changes recently. Based on FGA and 30 STS test, pt is at risk for falls. Pt will benefit from skilled physical therapy consisting of manual therapy, balance and gait training and pertubation training in order to prepare him for this summer and address impairments and improve function. Physical Therapy Plan Frequency and Duration Frequency of Treatment 2x/Week Duration of treatment (weeks) 12 Plan of Care Start Date 01/04/24 Plan of Care End Date 03/28/24 Therapeutic Interventions Therapeutic Interventions Balance Training,Canalithic Repositioning,Coordination Training,Gait Training,Home Exercise Program,Joint Mobilizations,Manual Therapy, Neuromuscular Re-education, Soft Tissue Mobilization, Taping,Therapeutic Activities, Therapeutic Exercises, Vestibular Rehabilitation Modalities Cold Pack/Ice Massage,Electric Stimulation,Hot Packs, Traction- Mechanical Next Visit Focus/Plan Next Note Type Treatment Note Next Visit Plan HEP: Narrown SHAY and staggered stance using sink for support , theraband lvl [address] Focus on gait re-training, and balance exercises such as narrowed stance, EO/EC, pertubation training, bosu ball, stair training.
--- NOTE | 2024-01-04 17:41 | PT.OPPOC ---
Addendum entered and electronically signed by Radha Moreno PT 01/13/24 08:20: PT direct supervision and direction to student PT Trevon Flanagan throughout session Original Note: Physical, Occupational & Speech Therapy At [facility] Current Diagnoses Other malaise (01/04/24) Visit Care Team Role Provider Type Robert Donohue MD Family Provider Physician Specialty: Orthopedics Orthopedic Surgery Address: [address] [place] [address], [phone] Fax: Email: [email or web address] Apple Neville MD Attending Provider Physician Primary Care Provider Referring Provider Specialty: Family Practice TANK FILLER Address: [address] [place] [address], [phone] Fax: Email: [email or web address] Plan Of Care PT-OP-T Assessment and Plan Start: 12/22/23 17:31 Freq: Status: Active Protocol: Document 01/04/24 08:02 FELECIA (Rec: 01/04/24 09:08 FELECIA [id number]) Physical Therapy Assessment Rehab Potential Rehabilitation Potential Good Evaluation Complexity Number of Personal Factors/Comorbidities 3 or More Number of Body Systems Impaired 4 or More Clinical Presentation at Evaluation Evolving Impairments Impairments Activity Tolerance,Balance, Coordination,Functional Activities,Functional Mobility ,Gait,Pain,Posture,Soft Tissue Mobility,Strength Other Concerns Barriers to Rehabilitation Pt is a fall risk due to unstadiness during gait. 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 Goals STS Public Safety Dispatcher Goal (LTG) Pt will be able to complete 12 STS with arms crossed in 30 sec in order to dec risk for falls based on age related norms LTG Duration 03/28/24 Balance Short Term Goal (STG) Pt will be able to balance on shuttle balance with a WBOS for 30 seconds to improve functional balance and imitate working conditions STG Duration 02/01/24 Fci Goal (LTG) Pt will be able to balance on shuttle balance with a staggered stance for 30 seconds with UE movements to improve functional balance and imitate working conditions LTG Duration 03/28/24 Gait Short Term Goal (STG) Pt will inc FGA score from 18/ 30 to a 24/30 in order to improve ability for functional activities and to return to work safetly Public Safety Dispatcher Goal (LTG) Pt will inc FGA score from 18/ 30 to a 28/30 in order to improve ability for functional activities and to return to work safetly LTG Duration 03/28/24 Assessment Summary Assessment Pt is a 68 yr/o male with a history R knee pain with recent worsining after a hard fall in [facility] and was admitted to the hospital due to SOB and new diagnosis of cancer. Since being d/c, he has reported dizziness that comes on with certain head movements and takes about 10 sec to go away. Pt may benefit from futher assessment from vestibular specialist. His pain during gait was reported at a 5 and he says that his R knee pain has only been getting worse since leaving the hospital. Pt reports loss of balance frequently and that his son has been noticing balance changes recently. Based on FGA and 30 STS test, pt is at risk for falls. Pt will benefit from skilled physical therapy consisting of manual therapy, balance and gait training and pertubation training in order to prepare him for this summer and address impairments and improve function. Physical Therapy Plan Frequency and Duration Frequency of Treatment 2x/Week Duration of treatment (weeks) 12 Plan of Care Start Date 01/04/24 Plan of Care End Date 03/28/24 Therapeutic Interventions Therapeutic Interventions Balance Training,Canalithic Repositioning,Coordination Training,Gait Training,Home Exercise Program,Joint Mobilizations,Manual Therapy, Neuromuscular Re-education, Soft Tissue Mobilization, Taping,Therapeutic Activities, Therapeutic Exercises, Vestibular Rehabilitation Modalities Cold Pack/Ice Massage,Electric Stimulation,Hot Packs, Traction- Mechanical Next Visit Focus/Plan Next Note Type Treatment Note Next Visit Plan HEP: Narrown SHAY and staggered stance using sink for support , theraband lvl [address] Focus on gait re-training, and balance exercises such as narrowed stance, EO/EC, pertubation training, bosu ball, stair training. Plan of Care Dates Plan of Care Start Date 01/04/24 Plan of Care End Date 03/28/24 Electronically Signed by: Trevon Flanagan 01/04/24 1583 If you are in agreement with this Plan of Care, please return a signed and dated copy. I have reviewed this Plan of Care and certify that the skilled therapy services above are required to meet the patient?s needs. Physician Signature Date Printed Name and Credentials Clinical Instructor Signature Printed Name and Credentials
--- NOTE | 2024-01-07 08:22 | PT-OP ANOTE ---
Pt arrived for appt, didn't realized isn't seeing primary PT today, stated need to cancel today's appt just found out one of good friends last night and not feeling up to PT appt. Pt asked PHYSICAL SCIENCE TECHNICIAN Rachel would like to speak with PT at earliest convenience on Wednesday, didn't give reasoning.
--- NOTE | 2024-01-11 18:09 | PT-OP ANOTE ---
Pt called wednesday but did not answer and called Wednesday w/answer and pt noted to PT that pain in R knee and leg inc after IE and feels like he might be fooling himself about it. PT discussed addressing this in PT sessions and will look manually to R Knee for dec pain to improve balance.
--- NOTE | 2024-01-12 12:04 | PT.OTN ---
Addendum entered and electronically signed by Radha Moreno PT 01/13/24 08:19: PT direct supervision and direction to student PT Trevon Flanagan throughout session Original Note: Current Diagnoses Other malaise (01/12/24) Physical Therapy Treatment Note PT-OP-A Visit Information Start: 12/22/23 17:31 Freq: Status: Active Protocol: Document 01/12/24 09:10 JG (Rec: 01/12/24 09:09 JG [id number]) Out-Patient Physical Therapy Visit Information Visit Information Visit Type Treatment Note Visit Note 09/04 Visit Start Time 08:20 Visit Stop Time 09:05 Visit Number 2 Number of DASHBOARD DEVELOPER Visits 0 PT-OP-B Current Condition Start: 12/22/23 17:31 Freq: Status: Active Protocol: Document 01/04/24 08:17 JG (Rec: 01/04/24 09:08 JG [id number]) Current Condition History of Current Condition Current Complaints Dec balance, R knee pain History of Current Condition Pt fell and came down hard on his knees back in [facility] due to a fall from loss of balance and dizziness. Reported at 63% oxygen upone hospital arrival and dizziness has been getting worse ever since his stay. Pt had a onset of cancer in [facility] during hospitalization and has been doing chemotherapy treatment since October. He takes one pill a day for the chemotherapy and started on a once a week treatment but is now only going once a month. In 1993 pt had a disectomy at L4-L5 region. Knees and joints ache and up until recently his R knee was discorlored and yellow due to his fall. Treatment Goals Patient/Caregiver Goals Working on improving balance and getting ready to fish again. 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 Pt reproted that R knee has always had issues since being on the boat. Reports going up stairs one foot at a time PT-OP-E Functional Tests Start: 12/22/23 17:31 Freq: Status: Active Protocol: Document 01/04/24 08:17 JG (Rec: 01/04/24 11:08 JG [id number]) Functional Tests 30 Second Sit to Stand Test Score 10 Comments Arms crossed Functional Gait Assessment Score 18 PT-OP-G Mobility & Gait Start: 12/22/23 17:31 Freq: Status: Active Protocol: Document 01/04/24 08:17 JG (Rec: 01/04/24 17:23 JG [id number]) OP Gait Assessment Gait Gait Assistance Required: Independent Distance (Feet) 200 Able to Maintain Weight Bearing Status Yes During Gait Assistive Devices Assistive Device Gait Belt Orthotic/Prosthetic Devices or Brace: No Gait Deviations General Gait Pattern Decreased Stride Length, Decreased Feet Clearance, Flexed Trunk Factors Limiting Gait Function Factors Limiting Gait Function Decreased Activity Tolerance, Decreased Strength,Limited Range of Motion,Pain,Poor Balance,Poor Safety Awareness Stair Climbing Evaluation Evaluation Level of Assist On Stairs Independent Devices Stair Climbing Assistive Devices Left Railing,Right Railing Technique/Endurance Stair Climbing Direction Ascend and Descend Stair Climbing Technique Step Over Step PT-OP-J Posture/Palpation/Skin Start: 12/22/23 17:31 Freq: Status: Active Protocol: Document 01/04/24 08:17 JG (Rec: 01/04/24 11:10 JG [id number]) Posture Evaluation Position Standing Evaluation View Anterior Head/C-Spine Posture Forward Head T-Spine Posture Rotation Left,Increased Kyphosis Shoulder Posture (L) Elevated PT-OP-M Strength Start: 12/22/23 17:31 Freq: Status: Active Protocol: Document 01/04/24 08:17 JG (Rec: 01/04/24 09:08 JG [id number]) Hip Strength Hip Manual Muscle Testing Right Flexion (L2) 4 Good Abduction 4- Good- Left Flexion (L2) 4- Good- Abduction 4+ Good+ Knee Strength Knee Manual Muscle Testing Right Flexion (S2) 4- Good- Extension (L3) 5 Normal Left Flexion (S2) 4- Good- Extension (L3) 5 Normal Ankle/Foot Strength Ankle and Foot Manual Muscle Testing Right Dorsiflexion (L4) 5 Normal Plantarflexion (S1) 5 Normal Left Dorsiflexion (L4) 5 Normal Plantarflexion (S1) 5 Normal PT-OP-Q Treatments Start: 12/22/23 17:31 Freq: Status: Active Protocol: Document 01/12/24 09:10 JG (Rec: 01/12/24 10:08 JG [id number]) Therapeutic Exercises Supine Exercises TKE Side right Equipment Used Towel Reps/Minutes 15 Comments Pt needed cueing in order to engage quad muscles appropriately Heel slides Side right Equipment Used Pillow case Reps/Minutes 12 Sitting Exercises LAQ Side right Equipment Used Treatment table Reps/Minutes 15 Standing Exercises Quad stretch Side right Reps/Minutes 30' hold Comments Pt was slightly off balance and needed cueing to move foot on and off chair Manual Therapy Treatment Soft Tissue Mobilization STM Body Location Rectus femoris, vastus lateralis, medialis and intermedalis Mobilization Type Cross-Friction,Strumming, Sustained Pressure Intensity/Depth Moderate Body Position Hooklying Joint Mobilizations Patellar glides Joint Patellar femoral J Direction sup/inf/med/lat Grade III Body Position Hooklying Comments restricted in sup/inf>med/lat Self-Care/Home Management Treatment Education Patient Education Home Exercise Program,Joint Protection,Pain Management, Safety Other Education Pt was educated on HEP and proper positions for engaging and stretching quad muscles. Pt was also educated on muscle attachments and what to expect for total knee replacment and post-op protocol PT-OP-T Assessment and Plan Start: 12/22/23 17:31 Freq: Status: Active Protocol: Document 01/12/24 09:10 JG (Rec: 01/12/24 10:08 JG [id number]) Physical Therapy Assessment Goals STS Shelter Goal (LTG) Pt will be able to complete 12 STS with arms crossed in 30 sec in order to dec risk for falls based on age related norms LTG Duration 03/28/24 Balance Short Term Goal (STG) Pt will be able to balance on shuttle balance with a WBOS for 30 seconds to improve functional balance and imitate working conditions STG Duration 02/01/24 Shelter Goal (LTG) Pt will be able to balance on shuttle balance with a staggered stance for 30 seconds with UE movements to improve functional balance and imitate working conditions LTG Duration 03/28/24 Gait Short Term Goal (STG) Pt will inc FGA score from to a 24 in order to improve ability for functional activities and to return to work safetly 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 Pt is still having some pain in the sup aspect of the patella but is able to work through exercises. Pt was educated on possible benefits and risk factors of TKA. Pt still has some dizziness and will be seeing a vestibular specialist in an upcoming appointment Physical Therapy Plan Frequency and Duration Frequency of Treatment 2x/Week Duration of treatment (weeks) 12 Plan of Care Start Date 01/04/24 Plan of Care End Date 03/28/24 Next Visit Focus/Plan Next Note Type Treatment Note Next Visit Plan Go over HEP, Work on balance, DL, WBOS, NBOS, EO, EC, theraband lv 1 3way, gait re- training, stair training
--- NOTE | 2024-01-14 13:15 | PT.OTN ---
Current Diagnoses Other malaise (01/14/24) Physical Therapy Treatment Note PT-OP-A Visit Information Start: 12/22/23 17:31 Freq: Status: Active Protocol: Document 01/14/24 08:06 AB (Rec: 01/14/24 09:25 AB [id number]) Out-Patient Physical Therapy Visit Information Visit Information Visit Type Treatment Note Visit Note 10/02 Access Code [id number] Visit Start Time 08:15 Visit Stop Time 09:01 Visit Number 3 Number of ASPHALT PAVING SUPERINTENDENT Visits 1 Evaluation Information Evaluation Date 01/04/24 PT-OP-B Current Condition Start: 12/22/23 17:31 Freq: Status: Active Protocol: Document 01/04/24 08:17 JG (Rec: 01/04/24 09:08 JG [id number]) Current Condition History of Current Condition Current Complaints Dec balance, R knee pain History of Current Condition Pt fell and came down hard on his knees back in [facility] due to a fall from loss of balance and dizziness. Reported at 63% oxygen upone hospital arrival and dizziness has been getting worse ever since his stay. Pt had a onset of cancer in [facility] during hospitalization and has been doing chemotherapy treatment since October. He takes one pill a day for the chemotherapy and started on a once a week treatment but is now only going once a month. In 1993 pt had a disectomy at L4-L5 region. Knees and joints ache and up until recently his R knee was discorlored and yellow due to his fall. Treatment Goals Patient/Caregiver Goals Working on improving balance and getting ready to fish again. Prior Functional Status Baseline Function- ADL's Independent Baseline Function- Mobility Independent Baseline Function- Gait Unstadiness with gait since fall in 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 Patient comments he feels the soreness is in the knee joint and calf muscles. SLS right LE 1 sec, left 10 seconds without UE use PT-OP-E Functional Tests Start: 12/22/23 17:31 Freq: Status: Active Protocol: Document 01/04/24 08:17 JG (Rec: 01/04/24 11:08 JG [id number]) Functional Tests 30 Second Sit to Stand Test Score 10 Comments Arms crossed Functional Gait Assessment Score 18 PT-OP-G Mobility & Gait Start: 12/22/23 17:31 Freq: Status: Active Protocol: Document 01/04/24 08:17 JG (Rec: 01/04/24 17:23 JG [id number]) OP Gait Assessment Gait Gait Assistance Required: Independent Distance (Feet) 200 Able to Maintain Weight Bearing Status Yes During Gait Assistive Devices Assistive Device Gait Belt Orthotic/Prosthetic Devices or Brace: No Gait Deviations General Gait Pattern Decreased Stride Length, Decreased Feet Clearance, Flexed Trunk Factors Limiting Gait Function Factors Limiting Gait Function Decreased Activity Tolerance, Decreased Strength,Limited Range of Motion,Pain,Poor Balance,Poor Safety Awareness Stair Climbing Evaluation Evaluation Level of Assist On Stairs Independent Devices Stair Climbing Assistive Devices Left Railing,Right Railing Technique/Endurance Stair Climbing Direction Ascend and Descend Stair Climbing Technique Step Over Step PT-OP-J Posture/Palpation/Skin Start: 12/22/23 17:31 Freq: Status: Active Protocol: Document 01/04/24 08:17 JG (Rec: 01/04/24 11:10 JG [id number]) Posture Evaluation Position Standing Evaluation View Anterior Head/C-Spine Posture Forward Head T-Spine Posture Rotation Left,Increased Kyphosis Shoulder Posture (L) Elevated PT-OP-M Strength Start: 12/22/23 17:31 Freq: Status: Active Protocol: Document 01/04/24 08:17 JG (Rec: 01/04/24 09:08 JG [id number]) Hip Strength Hip Manual Muscle Testing Right Flexion (L2) 4 Good Abduction 4- Good- Left Flexion (L2) 4- Good- Abduction 4+ Good+ Knee Strength Knee Manual Muscle Testing Right Flexion (S2) 4- Good- Extension (L3) 5 Normal Left Flexion (S2) 4- Good- Extension (L3) 5 Normal Ankle/Foot Strength Ankle and Foot Manual Muscle Testing Right Dorsiflexion (L4) 5 Normal Plantarflexion (S1) 5 Normal Left Dorsiflexion (L4) 5 Normal Plantarflexion (S1) 5 Normal PT-OP-Q Treatments Start: 12/22/23 17:31 Freq: Status: Active Protocol: Document 01/14/24 08:06 AB (Rec: 01/14/24 09:25 AB [id number]) Therapeutic Exercises Sitting Exercises seated hip abduction Side bilateral Reps/Minutes X2 LAQ Side right Equipment Used Treatment table Reps/Minutes 15 Standing Exercises bilateral heel raise Reps/Minutes 15X2 [address] hip Side bilateral Resistance level 1 light blue band Reps/Minutes X10 Manual Therapy Treatment Soft Tissue Mobilization STM Body Location hamstring, Rectus femoris, vastus lateralis, medialis and intermedalis Mobilization Type Cross-Friction,Rolling Intensity/Depth Moderate Body Position Hooklying Joint Mobilizations Patellar glides Joint Patellar femoral J Direction sup/inf/med/lat Grade III Body Position Hooklying Neuro Re-Education Treatment Balance Activities SLS without UE use Details CGA Reps/Duration 2 min Comments with and without head turns tandem stepping Details CGA hands above bars Reps/Duration 10 feet X 6 Comments verbal cues Blue cushion Details EC, EO, head turns while in [place], marching without eyes closed or head t Reps/Duration X1o for marching, 2 min for Romberg hurdles Details CGA handsa above bars Reps/Duration 10 feet X 6 Comments Verbal cues to avoid circumduction and for alternating LE pattern PT-OP-T Assessment and Plan Start: 12/22/23 17:31 Freq: Status: Active Protocol: Document 01/14/24 08:06 AB (Rec: 01/14/24 09:25 AB [id number]) Physical Therapy Assessment Goals STS Mcfp Goal (LTG) Pt will be able to complete 12 STS with arms crossed in 30 sec in order to dec risk for falls based on age related norms LTG Duration 03/28/24 Balance Short Term Goal (STG) Pt will be able to balance on shuttle balance with a WBOS for 30 seconds to improve functional balance and imitate working conditions STG Duration 02/01/24 Galvanizing Pot Runner Goal (LTG) Pt will be able to balance on shuttle balance with a staggered stance for 30 seconds with UE movements to improve functional balance and imitate working conditions LTG Duration 03/28/24 Gait Short Term Goal (STG) Pt will inc FGA score from 18 30 to a 24 in order to improve ability for functional activities and to return to work safetly Mcfp Goal (LTG) Pt will inc FGA score from to a in order to improve ability for functional activities and to return to work safetly LTG Duration 03/28/24 Assessment Summary Assessment Patient reports knee feels fine end of session. SLS 3 sec right LE post glute med activation Physical Therapy Plan Frequency and Duration Frequency of Treatment 2x/Week Duration of treatment (weeks) 12 Plan of Care Start Date 01/04/24 Plan of Care End Date 03/28/24 Next Visit Focus/Plan Next Note Type Treatment Note Next Visit Plan Go over HEP, Work on balance, DL, WBOS, NBOS, EO, EC, review theraband lv 1 3way, gait re- training, stair training. Hamstring stretch review/HEP
--- NOTE | 2024-01-18 17:57 | PT.OTN ---
Addendum entered and electronically signed by Radha Moreno PT 01/19/24 12:20: PT direct supervision and direction to student PT Trevon Flanagan throughout session Original Note: Current Diagnoses Other malaise (01/18/24) Physical Therapy Treatment Note PT-OP-A Visit Information Start: 12/22/23 17:31 Freq: Status: Active Protocol: Document 01/18/24 09:54 JG (Rec: 01/18/24 10:40 JAlysa [id number]) Out-Patient Physical Therapy Visit Information Visit Information Visit Type Treatment Note Visit Start Time 09:54 Visit Stop Time 10:32 Visit Number 4 Number of SODA FOUNTAIN CLERK Visits 0 PT-OP-B Current Condition Start: 12/22/23 17:31 Freq: Status: Active Protocol: Document 01/04/24 08:17 JG (Rec: 01/04/24 09:08 JG [id number]) Current Condition History of Current Condition Current Complaints Dec balance, R knee pain History of Current Condition Pt fell and came down hard on his knees back in [facility] due to a fall from loss of balance and dizziness. Reported at 63% oxygen upone hospital arrival and dizziness has been getting worse ever since his stay. Pt had a onset of cancer in [facility] during hospitalization and has been doing chemotherapy treatment since October. He takes one pill a day for the chemotherapy and started on a once a week treatment but is now only going once a month. In 1993 pt had a disectomy at L4-L5 region. Knees and joints ache and up until recently his R knee was discorlored and yellow due to his fall. Treatment Goals Patient/Caregiver Goals Working on improving balance and getting ready to fish again. 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 Pt said that he is sore in knee and calf muscles Patient Reported Progress Same PT-OP-E Functional Tests Start: 12/22/23 17:31 Freq: Status: Active Protocol: Document 01/04/24 08:17 JG (Rec: 01/04/24 11:08 JG [id number]) Functional Tests 30 Second Sit to Stand Test Score 10 Comments Arms crossed Functional Gait Assessment Score 18 PT-OP-G Mobility & Gait Start: 12/22/23 17:31 Freq: Status: Active Protocol: Document 01/04/24 08:17 JG (Rec: 01/04/24 17:23 JG [id number]) OP Gait Assessment Gait Gait Assistance Required: Independent Distance (Feet) 200 Able to Maintain Weight Bearing Status Yes During Gait Assistive Devices Assistive Device Gait Belt Orthotic/Prosthetic Devices or Brace: No Gait Deviations General Gait Pattern Decreased Stride Length, Decreased Feet Clearance, Flexed Trunk Factors Limiting Gait Function Factors Limiting Gait Function Decreased Activity Tolerance, Decreased Strength,Limited Range of Motion,Pain,Poor Balance,Poor Safety Awareness Stair Climbing Evaluation Evaluation Level of Assist On Stairs Independent Devices Stair Climbing Assistive Devices Left Railing,Right Railing Technique/Endurance Stair Climbing Direction Ascend and Descend Stair Climbing Technique Step Over Step PT-OP-J Posture/Palpation/Skin Start: 12/22/23 17:31 Freq: Status: Active Protocol: Document 01/04/24 08:17 JG (Rec: 01/04/24 11:10 JG [id number]) Posture Evaluation Position Standing Evaluation View Anterior Head/C-Spine Posture Forward Head T-Spine Posture Rotation Left,Increased Kyphosis Shoulder Posture (L) Elevated PT-OP-M Strength Start: 12/22/23 17:31 Freq: Status: Active Protocol: Document 01/04/24 08:17 JG (Rec: 01/04/24 09:08 JG [id number]) Hip Strength Hip Manual Muscle Testing Right Flexion (L2) 4 Good Abduction 4- Good- Left Flexion (L2) 4- Good- Abduction 4+ Good+ Knee Strength Knee Manual Muscle Testing Right Flexion (S2) 4- Good- Extension (L3) 5 Normal Left Flexion (S2) 4- Good- Extension (L3) 5 Normal Ankle/Foot Strength Ankle and Foot Manual Muscle Testing Right Dorsiflexion (L4) 5 Normal Plantarflexion (S1) 5 Normal Left Dorsiflexion (L4) 5 Normal Plantarflexion (S1) 5 Normal PT-OP-Q Treatments Start: 12/22/23 17:31 Freq: Status: Active Protocol: Document 01/18/24 09:54 JG (Rec: 01/18/24 10:47 JG [id number]) Therapeutic Exercises Supine Exercises SLR Side right Reps/Minutes 10 Comments Pt required v/c due to execessive ER of R LE TKE Side right Resistance 3lb ankle weight Equipment Used Bolster, 3lb ankle weight Reps/Minutes 15 Comments Pt needed cueing in order to engage quad muscles appropriately Heel slides Side right Reps/Minutes 15 Sitting Exercises LAQ Side right Resistance lvl 1 theraband Equipment Used Treatment table, lvl 1 theraband Reps/Minutes 15 Manual Therapy Treatment Soft Tissue Mobilization STM Body Location hamstring, Rectus femoris, vastus lateralis, medialis and intermedalis Mobilization Type Cross-Friction,Rolling Intensity/Depth Moderate Body Position Hooklying Joint Mobilizations Tibial femoral glides Joint Tibial femoral J Direction A/P Grade III Body Position Hooklying Patellar glides Joint Patellar femoral J Direction sup/inf/med/lat Grade III Body Position Hooklying Comments Pt demonstrated decreased lat/ sup/inf glide today. Pt did show improvements in lat glide post tibial femoral glides Neuro Re-Education Treatment Coordination Activities Tandem stance Equipment Treatment table Reps/Duration 45 sec ea PT-OP-T Assessment and Plan Start: 12/22/23 17:31 Freq: Status: Active Protocol: Document 01/18/24 09:54 JG (Rec: 01/18/24 10:47 JG [id number]) Physical Therapy Assessment Goals STS Half-Way Goal (LTG) Pt will be able to complete 12 STS with arms crossed in 30 sec in order to dec risk for falls based on age related norms LTG Duration 03/28/24 Balance Short Term Goal (STG) Pt will be able to balance on shuttle balance with a WBOS for 30 seconds to improve functional balance and imitate working conditions STG Duration 02/01/24 Financial Market Dealer Goal (LTG) Pt will be able to balance on shuttle balance with a staggered stance for 30 seconds with UE movements to improve functional balance and imitate working conditions LTG Duration 03/28/24 Gait Short Term Goal (STG) Pt will inc FGA score from 18 30 to a 24 in order to improve ability for functional activities and to return to work safetly Financial Market Dealer Goal (LTG) Pt will inc FGA score from 18 30 to a in order to improve ability for functional activities and to return to work safetly LTG Duration 03/28/24 Progress Towards Goals Progress Towards Goals Slow Progress due to Activity Tolerance Assessment Summary Assessment Pt reports less knee pain at end of treatment session today . Pt claims he is forgetful of HEP and only remembers a couple of exercises. Pt was encouraged to bring in HEP and PT will modify exercises accordingly. Pt is showing improvement in knee ext and with supine exercises. Physical Therapy Plan Frequency and Duration Frequency of Treatment 2x/Week Duration of treatment (weeks) 12 Plan of Care Start Date 01/04/24 Plan of Care End Date 03/28/24 Next Visit Focus/Plan Next Note Type Treatment Note Next Visit Plan Focus on HEP recall, balance, WBOS, NBOS, SL, shuttle balance, patella glides STM around quadraceps tendon
--- NOTE | 2024-01-20 16:34 | PT.OTN ---
Current Diagnoses Other malaise (01/20/24) Physical Therapy Treatment Note PT-OP-A Visit Information Start: 12/22/23 17:31 Freq: Status: Active Protocol: Document 01/20/24 10:47 SW (Rec: 01/20/24 11:17 SW [id number]) Out-Patient Physical Therapy Visit Information Visit Information Visit Type Treatment Note Visit Note 12/02 Visit Start Time 10:32 Visit Stop Time 11:12 Visit Number 5 Number of ONLINE MERCHANDISING COORDINATOR Visits 2 PT-OP-B Current Condition Start: 12/22/23 17:31 Freq: Status: Active Protocol: Document 01/04/24 08:17 JG (Rec: 01/04/24 09:08 JG [id number]) Current Condition History of Current Condition Current Complaints Dec balance, R knee pain History of Current Condition Pt fell and came down hard on his knees back in [facility] due to a fall from loss of balance and dizziness. Reported at 63% oxygen upone hospital arrival and dizziness has been getting worse ever since his stay. Pt had a onset of cancer in [facility] during hospitalization and has been doing chemotherapy treatment since October. He takes one pill a day for the chemotherapy and started on a once a week treatment but is now only going once a month. In 1993 pt had a disectomy at L4-L5 region. Knees and joints ache and up until recently his R knee was discorlored and yellow due to his fall. Treatment Goals Patient/Caregiver Goals Working on improving balance and getting ready to fish again. Prior Functional Status Baseline Function- ADL's Independent Baseline Function- Mobility Independent Baseline Function- Gait Unstadiness with gait since fall in 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 Pt recalled x3 HEP exercises. PT-OP-E Functional Tests Start: 12/22/23 17:31 Freq: Status: Active Protocol: Document 01/04/24 08:17 JG (Rec: 01/04/24 11:08 JG [id number]) Functional Tests 30 Second Sit to Stand Test Score 10 Comments Arms crossed Functional Gait Assessment Score 18 PT-OP-G Mobility & Gait Start: 12/22/23 17:31 Freq: Status: Active Protocol: Document 01/04/24 08:17 JG (Rec: 01/04/24 17:23 JG [id number]) OP Gait Assessment Gait Gait Assistance Required: Independent Distance (Feet) 200 Able to Maintain Weight Bearing Status Yes During Gait Assistive Devices Assistive Device Gait Belt Orthotic/Prosthetic Devices or Brace: No Gait Deviations General Gait Pattern Decreased Stride Length, Decreased Feet Clearance, Flexed Trunk Factors Limiting Gait Function Factors Limiting Gait Function Decreased Activity Tolerance, Decreased Strength,Limited Range of Motion,Pain,Poor Balance,Poor Safety Awareness Stair Climbing Evaluation Evaluation Level of Assist On Stairs Independent Devices Stair Climbing Assistive Devices Left Railing,Right Railing Technique/Endurance Stair Climbing Direction Ascend and Descend Stair Climbing Technique Step Over Step PT-OP-J Posture/Palpation/Skin Start: 12/22/23 17:31 Freq: Status: Active Protocol: Document 01/04/24 08:17 JG (Rec: 01/04/24 11:10 JG [id number]) Posture Evaluation Position Standing Evaluation View Anterior Head/C-Spine Posture Forward Head T-Spine Posture Rotation Left,Increased Kyphosis Shoulder Posture (L) Elevated PT-OP-M Strength Start: 12/22/23 17:31 Freq: Status: Active Protocol: Document 01/04/24 08:17 JG (Rec: 01/04/24 09:08 JG [id number]) Hip Strength Hip Manual Muscle Testing Right Flexion (L2) 4 Good Abduction 4- Good- Left Flexion (L2) 4- Good- Abduction 4+ Good+ Knee Strength Knee Manual Muscle Testing Right Flexion (S2) 4- Good- Extension (L3) 5 Normal Left Flexion (S2) 4- Good- Extension (L3) 5 Normal Ankle/Foot Strength Ankle and Foot Manual Muscle Testing Right Dorsiflexion (L4) 5 Normal Plantarflexion (S1) 5 Normal Left Dorsiflexion (L4) 5 Normal Plantarflexion (S1) 5 Normal PT-OP-Q Treatments Start: 12/22/23 17:31 Freq: Status: Active Protocol: Document 01/20/24 10:47 (Rec: 01/20/24 11:17 [id number]) Gym Equipment Shuttle Balance Red Details Red clips (fwd/lat) Comments EO/EC, WBOS, AP/lateral weight shifts Blue Details blue clips Comments WBOS, NBOS, EO/EC Therapeutic Exercises Supine Exercises SLR Side right Reps/Minutes 10 Comments Pt required v/c due to execessive ER of R LE TKE Side right Resistance 3lb ankle weight Equipment Used Bolster, 3lb ankle weight Reps/Minutes 15 Comments cues for quad activation Heel slides Side right Reps/Minutes 15 Sitting Exercises LAQ Side right Resistance lvl 1 theraband Equipment Used Treatment table, lvl 1 theraband Reps/Minutes 15 Manual Therapy Treatment Soft Tissue Mobilization STM Body Location hamstring, Rectus femoris, vastus lateralis, medialis and intermedalis Mobilization Type Cross-Friction,Rolling Intensity/Depth Moderate Body Position Hooklying Joint Mobilizations Patellar glides Joint Patellar femoral J Direction sup/inf/med/lat Grade III Body Position Hooklying Comments Pt demonstrated decreased lat/ sup/inf glide today. MWM knee flex/ext for superior/inferior glide. Neuro Re-Education Treatment Coordination Activities Tandem stance Details EO, EC Equipment Treatment table Reps/Duration 2 x 45 ea, 2 x 30 ea Comments Pt highly challenged without visual feedback PT-OP-T Assessment and Plan Start: 12/22/23 17:31 Freq: Status: Active Protocol: Document 01/20/24 10:47 (Rec: 01/20/24 11:17 [id number]) Physical Therapy Assessment Goals STS Senior Care Goal (LTG) Pt will be able to complete 12 STS with arms crossed in 30 sec in order to dec risk for falls based on age related norms LTG Duration 03/28/24 Balance Short Term Goal (STG) Pt will be able to balance on shuttle balance with a WBOS for 30 seconds to improve functional balance and imitate working conditions STG Duration 02/01/24 Radio Repairer Goal (LTG) Pt will be able to balance on shuttle balance with a staggered stance for 30 seconds with UE movements to improve functional balance and imitate working conditions LTG Duration 03/28/24 Gait Short Term Goal (STG) Pt will inc FGA score from to a in order to improve ability for functional activities and to return to work safetly Radio Repairer Goal (LTG) Pt will inc FGA score from to a in order to improve ability for functional activities and to return to work safetly LTG Duration 03/28/24 Assessment Summary Assessment Pt recalled x3 of HEP, pt did not bring in HEP HOs for review this session, pt unsure where they are, somewhere in car, discussed with pt to follow up next session if unable to locate so we can re issue to improve recall and improve pt carryover of exercises at home for pt progress. Reviewed HEP this session. Progressed pt balance challenge with shuttle balance, pt challenged with WBOS with red chains, hip and ankle strategies engaged to maintain balance with occasional use of DIGITAL MEDIA PLANNER prn to prevent LOB, improved with time, CGA. Pt challenged with NBOS, EC eliminating visual feedback, requiring occasional DIGITAL MEDIA PLANNER, eye opening, and CGA. Plan to discuss/review HEP next session and re-issue handouts prn and progress as able. Physical Therapy Plan Frequency and Duration Frequency of Treatment 2x/Week Duration of treatment (weeks) 12 Plan of Care Start Date 01/04/24 Plan of Care End Date 03/28/24 Therapeutic Interventions Therapeutic Interventions Balance Training,Canalithic Repositioning,Coordination Training,Gait Training,Home Exercise Program,Joint Mobilizations,Manual Therapy, Neuromuscular Re-education, Soft Tissue Mobilization, Taping,Therapeutic Activities, Therapeutic Exercises, Vestibular Rehabilitation Modalities Cold Pack/Ice Massage,Electric Stimulation,Hot Packs, Traction- Mechanical Next Visit Focus/Plan Next Note Type Treatment Note Next Visit Plan Focus on HEP recall, balance, WBOS, NBOS, SL, shuttle balance, patella glides STM around quadraceps tendon
--- NOTE | 2024-01-24 12:59 | PT.OTN ---
Current Diagnoses Other malaise (01/24/24) Physical Therapy Treatment Note PT-OP-A Visit Information Start: 12/22/23 17:31 Freq: Status: Active Protocol: Document 01/20/24 10:47 SW (Rec: 01/20/24 11:17 SW [id number]) Out-Patient Physical Therapy Visit Information Visit Information Visit Type Treatment Note Visit Note 12/02 Visit Start Time 10:32 Visit Stop Time 11:12 Visit Number 5 Number of MAPPING ENGINEER Visits 2 PT-OP-B Current Condition Start: 12/22/23 17:31 Freq: Status: Active Protocol: Document 01/04/24 08:17 JG (Rec: 01/04/24 09:08 JG [id number]) Current Condition History of Current Condition Current Complaints Dec balance, R knee pain History of Current Condition Pt fell and came down hard on his knees back in [facility] due to a fall from loss of balance and dizziness. Reported at 63% oxygen upone hospital arrival and dizziness has been getting worse ever since his stay. Pt had a onset of cancer in [facility] during hospitalization and has been doing chemotherapy treatment since October. He takes one pill a day for the chemotherapy and started on a once a week treatment but is now only going once a month. In 1993 pt had a disectomy at L4-L5 region. Knees and joints ache and up until recently his R knee was discorlored and yellow due to his fall. Treatment Goals Patient/Caregiver Goals Working on improving balance and getting ready to fish again. 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 Pt recalled x3 HEP exercises. PT-OP-E Functional Tests Start: 12/22/23 17:31 Freq: Status: Active Protocol: Document 01/04/24 08:17 JG (Rec: 01/04/24 11:08 JG [id number]) Functional Tests 30 Second Sit to Stand Test Score 10 Comments Arms crossed Functional Gait Assessment Score 18 PT-OP-G Mobility & Gait Start: 12/22/23 17:31 Freq: Status: Active Protocol: Document 01/04/24 08:17 JG (Rec: 01/04/24 17:23 JG [id number]) OP Gait Assessment Gait Gait Assistance Required: Independent Distance (Feet) 200 Able to Maintain Weight Bearing Status Yes During Gait Assistive Devices Assistive Device Gait Belt Orthotic/Prosthetic Devices or Brace: No Gait Deviations General Gait Pattern Decreased Stride Length, Decreased Feet Clearance, Flexed Trunk Factors Limiting Gait Function Factors Limiting Gait Function Decreased Activity Tolerance, Decreased Strength,Limited Range of Motion,Pain,Poor Balance,Poor Safety Awareness Stair Climbing Evaluation Evaluation Level of Assist On Stairs Independent Devices Stair Climbing Assistive Devices Left Railing,Right Railing Technique/Endurance Stair Climbing Direction Ascend and Descend Stair Climbing Technique Step Over Step PT-OP-J Posture/Palpation/Skin Start: 12/22/23 17:31 Freq: Status: Active Protocol: Document 01/04/24 08:17 JG (Rec: 01/04/24 11:10 JG [id number]) Posture Evaluation Position Standing Evaluation View Anterior Head/C-Spine Posture Forward Head T-Spine Posture Rotation Left,Increased Kyphosis Shoulder Posture (L) Elevated PT-OP-M Strength Start: 12/22/23 17:31 Freq: Status: Active Protocol: Document 01/04/24 08:17 JG (Rec: 01/04/24 09:08 JG [id number]) Hip Strength Hip Manual Muscle Testing Right Flexion (L2) 4 Good Abduction 4- Good- Left Flexion (L2) 4- Good- Abduction 4+ Good+ Knee Strength Knee Manual Muscle Testing Right Flexion (S2) 4- Good- Extension (L3) 5 Normal Left Flexion (S2) 4- Good- Extension (L3) 5 Normal Ankle/Foot Strength Ankle and Foot Manual Muscle Testing Right Dorsiflexion (L4) 5 Normal Plantarflexion (S1) 5 Normal Left Dorsiflexion (L4) 5 Normal Plantarflexion (S1) 5 Normal PT-OP-Q Treatments Start: 12/22/23 17:31 Freq: Status: Active Protocol: Document 01/20/24 10:47 (Rec: 01/20/24 11:17 [id number]) Gym Equipment Shuttle Balance Red Details Red clips (fwd/lat) Comments EO/EC, WBOS, AP/lateral weight shifts Blue Details blue clips Comments WBOS, NBOS, EO/EC Therapeutic Exercises Supine Exercises SLR Side right Reps/Minutes 10 Comments Pt required v/c due to execessive ER of R LE TKE Side right Resistance 3lb ankle weight Equipment Used Bolster, 3lb ankle weight Reps/Minutes 15 Comments cues for quad activation Heel slides Side right Reps/Minutes 15 Sitting Exercises LAQ Side right Resistance lvl 1 theraband Equipment Used Treatment table, lvl 1 theraband Reps/Minutes 15 Manual Therapy Treatment Soft Tissue Mobilization STM Body Location hamstring, Rectus femoris, vastus lateralis, medialis and intermedalis Mobilization Type Cross-Friction,Rolling Intensity/Depth Moderate Body Position Hooklying Joint Mobilizations Patellar glides Joint Patellar femoral J Direction sup/inf/med/lat Grade III Body Position Hooklying Comments Pt demonstrated decreased lat/ sup/inf glide today. MWM knee flex/ext for superior/inferior glide. Neuro Re-Education Treatment Coordination Activities Tandem stance Details EO, EC Equipment Treatment table Reps/Duration 2 x 45 ea, 2 x 30 ea Comments Pt highly challenged without visual feedback PT-OP-T Assessment and Plan Start: 12/22/23 17:31 Freq: Status: Active Protocol: Document 01/20/24 10:47 (Rec: 01/20/24 11:17 [id number]) Physical Therapy Assessment Goals STS Custodial Goal (LTG) Pt will be able to complete 12 STS with arms crossed in 30 sec in order to dec risk for falls based on age related norms LTG Duration 03/28/24 Balance Short Term Goal (STG) Pt will be able to balance on shuttle balance with a WBOS for 30 seconds to improve functional balance and imitate working conditions STG Duration 02/01/24 Wilton Weaver Goal (LTG) Pt will be able to balance on shuttle balance with a staggered stance for 30 seconds with UE movements to improve functional balance and imitate working conditions LTG Duration 03/28/24 Gait Short Term Goal (STG) Pt will inc FGA score from to a in order to improve ability for functional activities and to return to work safetly Wilton Weaver Goal (LTG) Pt will inc FGA score from to a in order to improve ability for functional activities and to return to work safetly LTG Duration 03/28/24 Assessment Summary Assessment Pt recalled x3 of HEP, pt did not bring in HEP HOs for review this session, pt unsure where they are, somewhere in car, discussed with pt to follow up next session if unable to locate so we can re issue to improve recall and improve pt carryover of exercises at home for pt progress. Reviewed HEP this session. Progressed pt balance challenge with shuttle balance, pt challenged with WBOS with red chains, hip and ankle strategies engaged to maintain balance with occasional use of NAVAL AIRCREWMAN MECHANICAL prn to prevent LOB, improved with time, CGA. Pt challenged with NBOS, EC eliminating visual feedback, requiring occasional NAVAL AIRCREWMAN MECHANICAL, eye opening, and CGA. Plan to discuss/review HEP next session and re-issue handouts prn and progress as able. Physical Therapy Plan Frequency and Duration Frequency of Treatment 2x/Week Duration of treatment (weeks) 12 Plan of Care Start Date 01/04/24 Plan of Care End Date 03/28/24 Therapeutic Interventions Therapeutic Interventions Balance Training,Canalithic Repositioning,Coordination Training,Gait Training,Home Exercise Program,Joint Mobilizations,Manual Therapy, Neuromuscular Re-education, Soft Tissue Mobilization, Taping,Therapeutic Activities, Therapeutic Exercises, Vestibular Rehabilitation Modalities Cold Pack/Ice Massage,Electric Stimulation,Hot Packs, Traction- Mechanical Next Visit Focus/Plan Next Note Type Treatment Note Next Visit Plan Focus on HEP recall, balance, WBOS, NBOS, SL, shuttle balance, patella glides STM around quadraceps tendon
--- NOTE | 2024-01-24 14:03 | PT.OTN ---
Current Diagnoses Other malaise (01/24/24) Physical Therapy Treatment Note PT-OP-A Visit Information Start: 12/22/23 17:31 Freq: Status: Active Protocol: Document 01/24/24 10:14 AB (Rec: 01/24/24 14:00 AB [id number]) Out-Patient Physical Therapy Visit Information Visit Information Visit Type Treatment Note Visit Note 01/02 Visit [email or web address] Access Code: [email or web address] Visit Start Time 10:31 Visit Stop Time 09:15 Visit Number 7 Number of SUPERVISOR CRACK OFF Visits 3 Evaluation Information Evaluation Date 01/04/24 PT-OP-B Current Condition Start: 12/22/23 17:31 Freq: Status: Active Protocol: Document 01/04/24 08:17 JG (Rec: 01/04/24 09:08 JG [id number]) Current Condition History of Current Condition Current Complaints Dec balance, R knee pain History of Current Condition Pt fell and came down hard on his knees back in [facility] due to a fall from loss of balance and dizziness. Reported at 63% oxygen upone hospital arrival and dizziness has been getting worse ever since his stay. Pt had a onset of cancer in [facility] during hospitalization and has been doing chemotherapy treatment since October. He takes one pill a day for the chemotherapy and started on a once a week treatment but is now only going once a month. In 1993 pt had a disectomy at L4-L5 region. Knees and joints ache and up until recently his R knee was discorlored and yellow due to his fall. Treatment Goals Patient/Caregiver Goals Working on improving balance and getting ready to fish again. 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 PT-OP-E Functional Tests Start: 12/22/23 17:31 Freq: Status: Active Protocol: Document 01/04/24 08:17 JG (Rec: 01/04/24 11:08 JG [id number]) Functional Tests 30 Second Sit to Stand Test Score 10 Comments Arms crossed Functional Gait Assessment Score 18 PT-OP-G Mobility & Gait Start: 12/22/23 17:31 Freq: Status: Active Protocol: Document 01/04/24 08:17 JG (Rec: 01/04/24 17:23 JG [id number]) OP Gait Assessment Gait Gait Assistance Required: Independent Distance (Feet) 200 Able to Maintain Weight Bearing Status Yes During Gait Assistive Devices Assistive Device Gait Belt Orthotic/Prosthetic Devices or Brace: No Gait Deviations General Gait Pattern Decreased Stride Length, Decreased Feet Clearance, Flexed Trunk Factors Limiting Gait Function Factors Limiting Gait Function Decreased Activity Tolerance, Decreased Strength,Limited Range of Motion,Pain,Poor Balance,Poor Safety Awareness Stair Climbing Evaluation Evaluation Level of Assist On Stairs Independent Devices Stair Climbing Assistive Devices Left Railing,Right Railing Technique/Endurance Stair Climbing Direction Ascend and Descend Stair Climbing Technique Step Over Step PT-OP-J Posture/Palpation/Skin Start: 12/22/23 17:31 Freq: Status: Active Protocol: Document 01/04/24 08:17 JG (Rec: 01/04/24 11:10 JG [id number]) Posture Evaluation Position Standing Evaluation View Anterior Head/C-Spine Posture Forward Head T-Spine Posture Rotation Left,Increased Kyphosis Shoulder Posture (L) Elevated PT-OP-M Strength Start: 12/22/23 17:31 Freq: Status: Active Protocol: Document 01/04/24 08:17 JG (Rec: 01/04/24 09:08 JG [id number]) Hip Strength Hip Manual Muscle Testing Right Flexion (L2) 4 Good Abduction 4- Good- Left Flexion (L2) 4- Good- Abduction 4+ Good+ Knee Strength Knee Manual Muscle Testing Right Flexion (S2) 4- Good- Extension (L3) 5 Normal Left Flexion (S2) 4- Good- Extension (L3) 5 Normal Ankle/Foot Strength Ankle and Foot Manual Muscle Testing Right Dorsiflexion (L4) 5 Normal Plantarflexion (S1) 5 Normal Left Dorsiflexion (L4) 5 Normal Plantarflexion (S1) 5 Normal PT-OP-Q Treatments Start: 12/22/23 17:31 Freq: Status: Active Protocol: Document 01/24/24 10:14 AB (Rec: 01/24/24 14:00 AB [id number]) Therapeutic Exercises Supine Exercises hamstring stretch Supine Exercise Name from hooklying Side right Reps/Minutes one minute X 3 SLR Side right Reps/Minutes 10 Heel slides Side right Reps/Minutes 15 Sitting Exercises seated hip abduction Side bilateral Resistance level one band level 3 band Reps/Minutes X15X2 ( second set with green )and one one minute hold Therapeutic Activity Therapeutic Activity sit to stand Name from varying seat heights without and with UE use Reps/Minutes X4 X2 Comments Patient ed mechanics of sit to stand, and use of self tactile cues for hip hinge Manual Therapy Treatment Soft Tissue Mobilization STM Body Location hamstring, Rectus femoris, vastus lateralis, medialis and intermedalis Mobilization Type Cross-Friction,Rolling Intensity/Depth Moderate Body Position Hooklying Joint Mobilizations Patellar glides Joint Patellar femoral J Direction sup/inf/med/lat Grade III Body Position Hooklying Comments Pt demonstrated decreased lat/ sup/inf glide today. MWM knee flex/ext for superior/inferior glide. Taping Leukotape and cover roll right knee Body Location right knee Treatment Focus unloading fat pad V and to improve tracking medially Type of Tape cover roll and leukotape Skin Inspection WNL PT-OP-T Assessment and Plan Start: 12/22/23 17:31 Freq: Status: Active Protocol: Document 01/24/24 10:14 AB (Rec: 01/24/24 14:00 AB [id number]) Physical Therapy Assessment Goals STS Outside Sales Account Executive Goal (LTG) Pt will be able to complete 12 STS with arms crossed in 30 sec in order to dec risk for falls based on age related norms LTG Duration 03/28/24 Balance Short Term Goal (STG) Pt will be able to balance on shuttle balance with a WBOS for 30 seconds to improve functional balance and imitate working conditions STG Duration 02/01/24 Mcfp Goal (LTG) Pt will be able to balance on shuttle balance with a staggered stance for 30 seconds with UE movements to improve functional balance and imitate working conditions LTG Duration 03/28/24 Gait Short Term Goal (STG) Pt will inc FGA score from 18 30 to a 24 in order to improve ability for functional activities and to return to work safetly Mcfp Goal (LTG) Pt will inc FGA score from to a in order to improve ability for functional activities and to return to work safetly LTG Duration 03/28/24 Assessment Summary Assessment Dl rates right knee pain 5/ end of session reports having less pain with sit to stand post taping. Physical Therapy Plan Frequency and Duration Frequency of Treatment 2x/Week Duration of treatment (weeks) 12 Plan of Care Start Date 01/04/24 Plan of Care End Date 03/28/24 Next Visit Focus/Plan Next Note Type Treatment Note Next Visit Plan Focus on HEP recall, balance, WBOS, NBOS, SL, shuttle balance, patella glides STM around quadraceps tendon Assess jayy to taping.
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
--- NOTE | 2024-02-18 08:16 | PT.OTN ---
Current Diagnoses Other malaise (02/18/24) Physical Therapy Treatment Note PT-OP-A Visit Information Start: 12/22/23 17:31 Freq: Status: Active Protocol: Document 02/18/24 07:31 SP (Rec: 02/18/24 08:19 SP [id number]) Out-Patient Physical Therapy Visit Information Visit Information Visit Type Treatment Note Visit Note 03/04, 4th DEVELOPMENT OFFICER tx updated. Girlfriend attends tx last 07/29 treatment to learn now to don cover roll and leukotaping to his R knee for pain relief. Visit Start Time 07:31 Visit Stop Time 08:16 Visit Number 8 (correct) Number of DEVELOPMENT OFFICER Visits 4 Evaluation Information Evaluation Date 01/04/24 PT-OP-B Current Condition Start: 12/22/23 17:31 Freq: Status: Active Protocol: Document 01/04/24 08:17 JG (Rec: 01/04/24 09:08 JG [id number]) Current Condition History of Current Condition Current Complaints Dec balance, R knee pain History of Current Condition Pt fell and came down hard on his knees back in [facility] due to a fall from loss of balance and dizziness. Reported at 63% oxygen upone hospital arrival and dizziness has been getting worse ever since his stay. Pt had a onset of cancer in [facility] during hospitalization and has been doing chemotherapy treatment since October. He takes one pill a day for the chemotherapy and started on a once a week treatment but is now only going once a month. In 1993 pt had a disectomy at L4-L5 region. Knees and joints ache and up until recently his R knee was discorlored and yellow due to his fall. Treatment Goals Patient/Caregiver Goals Working on improving balance and getting ready to fish again. 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 Just saw physician and being referred to orthopedic and an xray ordered. PT-OP-E Functional Tests Start: 12/22/23 17:31 Freq: Status: Active Protocol: Document 01/04/24 08:17 JG (Rec: 01/04/24 11:08 JG [id number]) Functional Tests 30 Second Sit to Stand Test Score 10 Comments Arms crossed Functional Gait Assessment Score 18 PT-OP-G Mobility & Gait Start: 12/22/23 17:31 Freq: Status: Active Protocol: Document 01/04/24 08:17 JG (Rec: 01/04/24 17:23 JG [id number]) OP Gait Assessment Gait Gait Assistance Required: Independent Distance (Feet) 200 Able to Maintain Weight Bearing Status Yes During Gait Assistive Devices Assistive Device Gait Belt Orthotic/Prosthetic Devices or Brace: No Gait Deviations General Gait Pattern Decreased Stride Length, Decreased Feet Clearance, Flexed Trunk Factors Limiting Gait Function Factors Limiting Gait Function Decreased Activity Tolerance, Decreased Strength,Limited Range of Motion,Pain,Poor Balance,Poor Safety Awareness Stair Climbing Evaluation Evaluation Level of Assist On Stairs Independent Devices Stair Climbing Assistive Devices Left Railing,Right Railing Technique/Endurance Stair Climbing Direction Ascend and Descend Stair Climbing Technique Step Over Step PT-OP-J Posture/Palpation/Skin Start: 12/22/23 17:31 Freq: Status: Active Protocol: Document 01/04/24 08:17 JG (Rec: 01/04/24 11:10 JG [id number]) Posture Evaluation Position Standing Evaluation View Anterior Head/C-Spine Posture Forward Head T-Spine Posture Rotation Left,Increased Kyphosis Shoulder Posture (L) Elevated PT-OP-M Strength Start: 12/22/23 17:31 Freq: Status: Active Protocol: Document 01/04/24 08:17 JG (Rec: 01/04/24 09:08 JG [id number]) Hip Strength Hip Manual Muscle Testing Right Flexion (L2) 4 Good Abduction 4- Good- Left Flexion (L2) 4- Good- Abduction 4+ Good+ Knee Strength Knee Manual Muscle Testing Right Flexion (S2) 4- Good- Extension (L3) 5 Normal Left Flexion (S2) 4- Good- Extension (L3) 5 Normal Ankle/Foot Strength Ankle and Foot Manual Muscle Testing Right Dorsiflexion (L4) 5 Normal Plantarflexion (S1) 5 Normal Left Dorsiflexion (L4) 5 Normal Plantarflexion (S1) 5 Normal PT-OP-Q Treatments Start: 12/22/23 17:31 Freq: Status: Active Protocol: Document 02/18/24 07:31 SP (Rec: 02/18/24 08:19 SP [id number]) Therapeutic Exercises Supine Exercises ITB stretch Supine Exercise Name initiated Side right Equipment Used /s strap at foot Reps/Minutes 30 x2 Comments good response stretch (post manual-declined HO), no pain Gait Training Gait Activity SPC Device Used SPC (in PT) Distance/Duration 20 ft x2 Treatment Focus patterning LUE for RLE, support R knee pain mgt Comments Short time demo then return demo use of SPC in LUE pattern with RLE for midline stability provide support to R knee with decreased compensations. Improved 2pt gait instructions with distance and states does feel can be helpful. Manual Therapy Treatment Soft Tissue Mobilization STM Body Location R Vastus Lateralis, ITB Mobilization Type Cross-Friction,Instrument Assisted,Rolling,Trigger Point Release Intensity/Depth Moderate Body Position Hooklying Comments rolling pin and meng tooling, manual and ed self use rolling pin seated and trial handle of utensil/spatula home for carryover relief if beneficial . Joint Mobilizations Tibial femoral glides Joint Tibial femoral J Direction A/P Grade III Body Position Hooklying Patellar glides Joint Patellar femoral J Direction sup/inf/med/lat Grade III Body Position Hooklying Comments Pt demonstrated decreased lat/ sup/inf glide today. MWM knee flex/ext for superior/inferior glide. Taping Leukotape and cover roll right knee Body Location right knee Treatment Focus unloading fat pad V and to improve tracking medially Type of Tape cover roll /c leukotape & ktape Skin Inspection WNL Comments 1. 2 strips each tape: distal patellar tendon (anterior prox tib)> med/lat patella > lower VL & VM 2. 1 strip each tape: fat pad taping (decompression): horizontal anterior Tib tubercle 3. 1 strip Ktape: distal ITB ( lat tib plateau)> Mid ITB Self-Care/Home Management Treatment Education Patient Education Body Mechanics,Joint Protection,Pain Management, Safety Caregiver Education Pt and CG ed L knee taping, girlfriend took pictures. Other Education Time spent ed anatomy of R knee benefits manual, Ktaping and are various ways to tape. Very slight lateral patellar tracking, decided tape same as previous DEVELOPMENT OFFICER. Ed proper gait phase body mechanics suggested use of SPC for midline and provide R knee support. Demo'd and pt revse demo for 2pt gait understanding. Added ITB stretch /c strap, ed during DEVELOPMENT OFFICER STMs rolling pin and tooling ITB & VL. Good feedback response, R knee better end tx. PT-OP-T Assessment and Plan Start: 12/22/23 17:31 Freq: Status: Active Protocol: Document 02/18/24 07:31 SP (Rec: 02/18/24 08:19 SP [id number]) Physical Therapy Assessment Goals STS Prison Goal (LTG) Pt will be able to complete 12 STS with arms crossed in 30 sec in order to dec risk for falls based on age related norms LTG Duration 03/28/24 Balance Short Term Goal (STG) Pt will be able to balance on shuttle balance with a WBOS for 30 seconds to improve functional balance and imitate working conditions STG Duration 02/01/24 Core Piler Goal (LTG) Pt will be able to balance on shuttle balance with a staggered stance for 30 seconds with UE movements to improve functional balance and imitate working conditions LTG Duration 03/28/24 Gait Short Term Goal (STG) Pt will inc FGA score from 18/ 30 to a 24/30 in order to improve ability for functional activities and to return to work safetly Prison Goal (LTG) Pt will inc FGA score from 18/ 30 to a 28/30 in order to improve ability for functional activities and to return to work safetly LTG Duration 03/28/24 Assessment Summary Assessment Pt responded well to manual, ITb stretching and good understanding of reasoning of taping technique with good response less Lateral R knee pain and felt more supportive. Pt good understanding ITB stretch and self gentle massage rolling to VL, ITB for benefits of tension reduction and pain control (pnfree tolerance). DEVELOPMENT OFFICER ed continue HEP previously given if helpful, PT will review next tx, didnt have time today. Physical Therapy Plan Frequency and Duration Frequency of Treatment 2x/Week Duration of treatment (weeks) 12 Plan of Care Start Date 01/04/24 Plan of Care End Date 03/28/24 Therapeutic Interventions Therapeutic Interventions Balance Training,Canalithic Repositioning,Coordination Training,Gait Training,Home Exercise Program,Joint Mobilizations,Manual Therapy, Neuromuscular Re-education, Soft Tissue Mobilization, Taping,Therapeutic Activities, Therapeutic Exercises, Vestibular Rehabilitation Modalities Cold Pack/Ice Massage,Electric Stimulation,Hot Packs, Traction- Mechanical Next Visit Focus/Plan Next Note Type Treatment Note Next Visit Plan CHeck manual, taping last tx. If SPC helpful. 5th visit next week. Ask when ortho appt& xray. POC: Focus on HEP recall, balance, WBOS, NBOS, SL, shuttle balance, patella glides STM around quadraceps tendon Assess jayy to taping.
--- NOTE | 2024-02-28 07:36 | PT-OP ANOTE ---
Addendum entered and electronically signed by Radha Moreno, PT 02/28/24 09:55: PT called and left VM about importance of attending next appt and to discuss if pt wants to cont PT. pt asked to call back if does not want to continue w/PT at this time. Original Note: Pt cancelled for 3 consecutive appt, no reason given via text. MULTIPLE NEEDLE STITCHER will call later to remind pt to help progress him, need for attendance and remind contract signed about importance of attendance. Need to follow up and see PT next visit, hasn't seen since 01/17 and already seen 4 consecutive MULTIPLE NEEDLE STITCHER txs.
--- NOTE | 2024-02-28 10:33 | PT.OPDS ---
Current Diagnoses Other malaise (02/18/24) Visit Care Team Role Provider Type Robert Donohue MD Family Provider Physician Specialty: Orthopedics Orthopedic Surgery Address: [address], [place], [address] Fax: Email: [email or web address] Apple Neville MD Attending Provider Physician Primary Care Provider Referring Provider Specialty: Family Practice DENTAL SURGERY DOCTOR Address: [address] [place], [address] Fax: Email: [email or web address] Visit Number Visit Number 8 (correct) Discharge Summary PT-OP-B Current Condition Start: 12/22/23 17:31 Freq: Status: Active Protocol: Document 01/04/24 08:17 JG (Rec: 01/04/24 09:08 JG [id number]) Current Condition History of Current Condition Current Complaints Dec balance, R knee pain History of Current Condition Pt fell and came down hard on his knees back in [facility] due to a fall from loss of balance and dizziness. Reported at 63% oxygen upone hospital arrival and dizziness has been getting worse ever since his stay. Pt had a onset of cancer in [facility] during hospitalization and has been doing chemotherapy treatment since October. He takes one pill a day for the chemotherapy and started on a once a week treatment but is now only going once a month. In 1993 pt had a disectomy at L4-L5 region. Knees and joints ache and up until recently his R knee was discorlored and yellow due to his fall. Treatment Goals Patient/Caregiver Goals Working on improving balance and getting ready to fish again. Prior Functional Status Baseline Function- ADL's Independent Baseline Function- Mobility Independent Baseline Function- Gait Unstadiness with gait since fall in 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 Just saw physician and being referred to orthopedic and an xray ordered. PT-OP-E Functional Tests Start: 12/22/23 17:31 Freq: Status: Active Protocol: Document 01/04/24 08:17 JG (Rec: 01/04/24 11:08 JG [id number]) Functional Tests 30 Second Sit to Stand Test Score 10 Comments Arms crossed Functional Gait Assessment Score 18 PT-OP-G Mobility & Gait Start: 12/22/23 17:31 Freq: Status: Active Protocol: Document 01/04/24 08:17 JG (Rec: 01/04/24 17:23 JG [id number]) OP Gait Assessment Gait Gait Assistance Required: Independent Distance (Feet) 200 Able to Maintain Weight Bearing Status Yes During Gait Assistive Devices Assistive Device Gait Belt Orthotic/Prosthetic Devices or Brace: No Gait Deviations General Gait Pattern Decreased Stride Length, Decreased Feet Clearance, Flexed Trunk Factors Limiting Gait Function Factors Limiting Gait Function Decreased Activity Tolerance, Decreased Strength,Limited Range of Motion,Pain,Poor Balance,Poor Safety Awareness Stair Climbing Evaluation Evaluation Level of Assist On Stairs Independent Devices Stair Climbing Assistive Devices Left Railing,Right Railing Technique/Endurance Stair Climbing Direction Ascend and Descend Stair Climbing Technique Step Over Step PT-OP-J Posture/Palpation/Skin Start: 12/22/23 17:31 Freq: Status: Active Protocol: Document 01/04/24 08:17 JG (Rec: 01/04/24 11:10 JG [id number]) Posture Evaluation Position Standing Evaluation View Anterior Head/C-Spine Posture Forward Head T-Spine Posture Rotation Left,Increased Kyphosis Shoulder Posture (L) Elevated PT-OP-M Strength Start: 12/22/23 17:31 Freq: Status: Active Protocol: Document 01/04/24 08:17 JG (Rec: 01/04/24 09:08 JG [id number]) Hip Strength Hip Manual Muscle Testing Right Flexion (L2) 4 Good Abduction 4- Good- Left Flexion (L2) 4- Good- Abduction 4+ Good+ Knee Strength Knee Manual Muscle Testing Right Flexion (S2) 4- Good- Extension (L3) 5 Normal Left Flexion (S2) 4- Good- Extension (L3) 5 Normal Ankle/Foot Strength Ankle and Foot Manual Muscle Testing Right Dorsiflexion (L4) 5 Normal Plantarflexion (S1) 5 Normal Left Dorsiflexion (L4) 5 Normal Plantarflexion (S1) 5 Normal PT-OP-T Assessment and Plan Start: 12/22/23 17:31 Freq: Status: Active Protocol: Document 02/28/24 10:32 [facility] (Rec: 02/28/24 10:33 [facility] [id number]) Physical Therapy Assessment Goals STS Room Service Waiter/Waitress Goal (LTG) Pt will be able to complete 12 STS with arms crossed in 30 sec in order to dec risk for falls based on age related norms LTG Duration 03/28/24 Balance Short Term Goal (STG) Pt will be able to balance on shuttle balance with a WBOS for 30 seconds to improve functional balance and imitate working conditions STG Duration 02/01/24 Room Service Waiter/Waitress Goal (LTG) Pt will be able to balance on shuttle balance with a staggered stance for 30 seconds with UE movements to improve functional balance and imitate working conditions LTG Duration 03/28/24 Gait Short Term Goal (STG) Pt will inc FGA score from 18/ 30 to a 24/30 in order to improve ability for functional activities and to return to work safetly [facility] Goal (LTG) Pt will inc FGA score from 18/ 30 to a 28/30 in order to improve ability for functional activities and to return to work safetly LTG Duration 03/28/24 Assessment Summary Assessment Pt. cancelled remaining appointments requesting discharge per call w/front of house manager. Pt was doing well with PT but limited by knee pain and had been encouraged to follow up w/a provider re: this during prior sessions. DC d/t pt request Physical Therapy Plan Discharge Physical Therapy Discharge Reasons Patient Request
== END 2024-02-28 13:51 | disposition home or self-care (01) ==
LOC: PHYS 07:30
PROVIDERS: Family Provider Orthopaedic Surgery; PCP Family Medicine; Referring Provider Family Medicine; Visit Provider Family Medicine
DX: R53.81 Other malaise (principal)
CPT/HCPCS: 97110; 97112; 97140; 97162; 97530; 97535

== ENCOUNTER 2025-05-12 08:39 | Emergency (ER) | payer MEDICARE, OTHER, SELFPAY ==
[2023-09-08 17:32] VITALS: PULSE 96; RESP 24; O2SAT 93
[2025-05-12 08:52] VITALS: BP 168/98; PULSE 88; RESP 18; TEMP 37.1; O2SAT 97; BMI 38.5
--- NOTE | 2025-05-12 09:18 | ED.URI ---
HPI - URI/Sore Throat General Chief Complaint: Shortness of Breath/Dyspnea Stated Complaint: Coughing up green mucus Time Seen by Provider: 05/12/25 09:10 Source: patient Mode of arrival: Ambulatory History of Present Illness HPI Narrative: Patient is a 69-year-old male history of COPD, CLL treated year ago no longer on chemo, presenting today with 2 days of green mucus nasal discharge. He was intubated with community acquired pneumonia 01/20/2025 and ultimately discharged 02/13/2025, he is supposed to go fishing for about 3-4 days and wants to make sure he is clear to go. He has no chest pain no shortness of breath no fever. He really reports some green nasal mucus sputum no significant head pressure no fevers. Reviewing hospitalization and records patient had a complicated stay, he was intubated January 20 through January 29 for rhino virus and community-acquired pneumonia with underlying COPD, septic shock, NSTEMI type 2, paroxysmal atrial fibrillation and pulmonary hypertension. He overall is feeling better but based on his recent hospitalization and events he wants to make sure he is okay. Related Data Home Medications ?Medication ?Instructions ?Recorded ?Confirmed obinutuzumab 1,000 mg/40 mL 1,000 mg IV Q28D 06/12/24 10/11/24 intravenous solution Previous Rx's ?Medication ?Instructions ?Recorded Disabled Parking Permit #1 ea 12/16/23 bupropion HCl 300 mg 24 hr tablet, 300 mg PO QAM #60 tabs 08/08/24 extended release metoprolol succinate 25 mg 25 mg PO DAILY #90 tabs 04/09/25 tablet,extended release 24 hr Allergies Allergy/AdvReac Type Severity Reaction Status Date / Time No Known Drug Allergies Allergy Unverified 04/09/25 10:15 Patient History Medical History (Updated 05/12/25 @ 09:39 by Noah Rodrigez) Obesity Seborrheic dermatitis Right knee pain Grief at loss of child Dupuytrens contracture Knee pain Declining functional status Tobacco use disorder Malignant pleural effusion DNR (do not resuscitate) COPD (chronic obstructive pulmonary disease) Elevated LFTs Atrial fibrillation with rapid ventricular response Electrolyte disturbance Anemia CLL (chronic lymphocytic leukemia) (~2023) Surgical History Anesthesia History of back surgery (~1993) Social History (System 09/08/23 @ 16:46 by Fani Fernandez) Smoking Status: Current every day smoker Smoking Status: Current every day smoker tobacco type: cigarettes Exam Initial Vital Signs Initial Vital Signs: Vital Signs Temperature 98.8 F 05/12/25 08:52 Pulse Rate 88 05/12/25 08:52 Respiratory Rate 18 05/12/25 08:52 Blood Pressure 168/98 H 05/12/25 08:52 Pulse Oximetry 97 05/12/25 08:52 Oxygen Delivery Method Room Air 05/12/25 08:52 GENERAL: Alert overweight chronically ill 69-year-old male HEENT: Head atraumatic,EOMI, pupils reactive, face symmetric, moist mucous membranes CARDIOVASCULAR: Regular rate and rhythm without murmurs, rubs or gallops. RESPIRATORY: Breath sounds equal bilaterally, no wheezes rales or rhonchi. EXTREMITIES: Normal range of motion, no clubbing or edema. Neurovascularly intact NEUROLOGICAL: Alert and oriented x4.Normal gait and speech. Cranial nerves II through XII grossly intact. SKIN: Warm, dry, no laceration, no petechiae, no rashes or lesions. Course Vital Signs Vital signs: Vital Signs - 8 hr 05/12/25 08:52 Temperature 98.8 F Pulse Rate 88 Respiratory Rate 18 Blood Pressure 168/98 H Pulse Oximetry 97 Oxygen Delivery Method Room Air MDM - URI/Sore Throat MDM Narrative Medical decision making narrative: Patient 69-year-old male history of COPD CLL for hospitalization over the summer for pneumonia presenting today with green sputum. Patient overall appears well nontoxic breath sounds were clear. Offered chest x-ray and lab draw for some basic blood work, I could not find lab results from his hospitalization the last blood work we had a WBC of 802. Patient got frustrated did not want a wait for results did not want anything done and left I was not made aware of his leaving or his frustration until after he left. Discharge Plan Departure Patient Disposition: Left Against Medical Advice Clinical Impression: Left against medical advice Prescriptions: No Action obinutuzumab 1,000 mg/40 mL solution 1,000 mg IV Q28D Rx Instructions: administer on day 1 of (each) cycle metoprolol succinate 25 mg tablet extended release 24 hr 25 mg PO DAILY Qty: 90 3RF (DME) Disabled Parking Permit See Rx Instructions .ROUTE .[employer] Qty: 1 0RF Rx Instructions: I find this person to be disabled bupropion HCl 300 mg tablet extended release 24 hr 300 mg PO QAM Qty: 60 2RF Referrals: Apple Neville MD [Primary Care Provider, Family Practice] Stand Alone Forms: Patient Portal/API, Against Med. Advice ([place])
--- NOTE | 2025-05-12 09:33 | PC.NURSE ---
Pt refused chest xray. Patient stated he didn't want to wait in a room and walked briskly out of the department. Provider notified. Most recent vital signs WNL.
--- NOTE | 2025-05-12 09:37 | PC.NURSE ---
pt decided to get out and leave against medical advice. States he does not want a chest xray. States he will wait for his appointment with his PCP on wednesday since he has cancelled his boating trip
== END 2025-05-12 09:39 | disposition left against medical advice (07) ==
PROVIDERS: Emergency Provider Emergency Medicine; Family Provider Orthopaedic Surgery; PCP Family Medicine
DX: J02.9 Acute pharyngitis, unspecified (principal); R05.9 Cough, unspecified
CPT/HCPCS: 99281